=== PATIENT | male | born 1950 | race Caucasian/White ===

== ENCOUNTER 2020-09-24 04:18 | Observation (INO) | payer OTHER ==
--- OUTSIDE RECORDS SUMMARY | 2020-09-24 04:22 | XMS REPORT | Continuity of Care Document ---
:1950 Author Organization [facility] t Address [address] [place] [address] Care Team Providers Name Role Phone Unavailable Unavailable Unavailable Payers Payer Name Policy Type Policy Number Effective Date Expiration Date S ource Problems This patient has no known problems. Allergies, Adverse Reactions, Alerts Allergy Allergy Status Severity Reaction(s) Onset Inactive Treating Comm ents Source Name Type Date Date Clinician hydrocod DA Active [facility] one -12 Clear 00:00: Spann 00 [facility] hydrocod DA Active [facility] one 06-06 Clear 00:00: Spann 00 [facility] hydrocod DA Active [facility] 2011[facility] one 03-25 [place] 00:00: [facility] Medications This patient has no known medications. Procedures This patient has no known procedures. Results Test Description Test Time Test Comments Results Result [facility] e Comments - XR SHOULDER 2 + 2020-08-11 V LT 08:38:00 [facility] 1950 Sex: M Patient Name: ARI VOGT Unit No: [id number] EXAMS: CPT CODE: [id number] XR SHOULDER 2 + [place] [address]76 AP portable left shoulder COMMENT: The patient is status post reverse prosthesis placement which is articulating normally. at 0838 Reported and signed by: Ignacio Wren MD CC: Greg Hughes MD Technologist: RUBEN MOSQUERA (RT.R) Transcribed D/ (0838) FranciscoL [facility] NAME: ARI VOGT [address] [facility] PHYS: Greg Mace : 1950 AGE: 70 SEX: M [place] [address] LOC: Y.302 A PHONE #: [phone] EXAM DATE: 08/09/2020 STATUS: DIS IN FAX #: [phone] RAD #: D/C DT 08/10/2020 PAGE 1 Signed Report Patient Name: ARI VOGT Unit No: [id number] EXAMS: CPT CODE: [id number] XR SHOULDER 2 + [place] [address] <Continued> Orig Print D/T: S: 08/11/2020 (0841) [facility] NAME: ARI VOGT [address] [place] [address] PHYS: Greg Mace : 1950 AGE: 70 SEX: M [place] [address] LOC: Y.302 A PHONE #: [phone] EXAM DATE: 08/09/2020 STATUS: DIS IN FAX #: [phone] RAD #: D/C DT 08/10/2020 PAGE 2 Signed Report BASIC METABOLIC PANEL 2020-08-10 06:19:00 Test Item Value Reference Range Interpretation Comme nts SODIUM (test code = NA) 135 mmol/L 136-145 L POTASSIUM (test code = K) 4.7 mmol/L 3.5-5.1 N CHLORIDE (test code = CL) 99.0 mmol/L 98-107 N CARBON DIOXIDE (test code = CO2) 28.6 mmol/L 21-32 N GLUCOSE (test code = GLU) 114 mg/dL 70-110 H BLOOD UREA NITROGEN (test code = 18 mg/dL 7-18 N BUN) GLOMERULAR FILTRATION RATE (test 82.4 >60 Unit of measure: code = GFR) mL/min/1.73 m2R eference Range:Healthy A dults >90 mL/min/1.73 m2 For Chronic Kidney Disease: Stage II Mi ld Decrease in GFR 60-9 0 Stage III Moderate Decrease in GFR 30-59 Stage IV Severe Decrease in GFR 15-29 Stage V Kidney Failure <15 CREATININE (test code = CREAT) 0.91 mg/dL 0.55-1.30 N CALCIUM (test code = CA) 8.5 mg/dL 8.2-10.1 N CBC W/AUTO [id number] 05:46:00 Test Item Value Reference Range Interpretation Comments WHITE BLOOD CELL (test code = 12.6 K/mm3 5.7-10.5 H WBC) RED BLOOD CELL (test code = RBC) 4.36 M/mm3 4.2-5.4 N HEMOGLOBIN (test code = HGB) 13.3 g/dL 12-16 N HEMATOCRIT (test code = HCT) 39.7 % 37-47 N MEAN CELL VOLUME (test code = 91 fL 80-98 N MCV) MEAN CELL HGB (test code = MCH) 30.5 pg 27-34 N MEAN CELL HGB CONCENTRATION (test 33.5 g/dL 30.8-34.1 N code = MCHC) RED CELL DISTRIBUTION WIDTH (test 12.8 % 11-16 N code = RDW) PLT (test code = PLT) 165 K/mm3 130-400 N MEAN PLATELET VOLUME (test code = 11.0 fL 8.9-12.1 N MPV) NEUTROPHIL % (test code = NT%) 84.7 % 45-70 H LYMPHOCYTE % (test code = LY%) 6.2 % 20-40 L MONOCYTE % (test code = MO%) 8.3 % 3-10 N EOSINOPHIL % (test code = EO%) 0.0 % 1-5 L BASOPHIL % (test code = BA%) 0.2 % 0.0-1.1 N NEUTROPHIL # (test code = NT#) 10.68 K/mm3 2.00-7.50 H LYMPHOCYTE # (test code = LY#) 0.78 K/mm3 1.50-4.00 L MONOCYTE # (test code = MO#) 1.05 K/mm3 0.2-0.8 H EOSINOPHIL # (test code = EO#) 0.00 K/mm3 0.04-0.4 L BASOPHIL # (test code = BA#) 0.02 K/mm3 0.02-0.10 N MANUAL DIFF REQUIRED (test code = NO MANUAL DIFF MDIFF) NUCLEATED RED BLOOD CELL (test 0 % 0-0 N code = NRBC) SPECIMEN COMMENT: POD #1Novel Coronavirus 2018 [id number] 06:07:00 Test Item Value Reference Range Interpretation Comments Novel Coronavirus Negative Negative Positive r esults are 2019 Inhouse (test indicativ e of the presence code = COVNONPUI) ofSARS-CoV -2 RNA, clinical correlation wit h patient historyand othe r diagnostic info rmation is necessary to determinepatien t infection status. Positiv e results do not rule out bacterial infection or co -infection with other viru ses. Negative result s do not preclude SARS-C oV-2 infection andsh ould not be used as the roseanne e basis for patient managementdecis ions. Negative result s must be combined with otherclinical observations, p atient history, and epidemiological information . Detection of SARS-CoV-2 RNA may be affe cted bysample collec tion methods, storag e conditions, and /or stageof infection. Mariana l RNA mutations, vacc inations, antiviraltherap eutics, antibiotics, chemotherapeuti c orimmunosuppres josé drugs have not been e valuated for effectson d etection. Results are for the identification of SARS-CoV-2 RNA usingthe [employer] M2000 Sy stem under the FDA Emergen cy UseAuthorizatio n. The testing is perf ormed by personneltraoumar d in the procedures for the [place] M2000 molecular diagnostic SARS-CoV-2 assa y in vitro. Novel Coronavirus 2018 [id number] 06:07:00 Test Item Value Reference Range Interpretation Comments Novel Coronavirus Negative Negative Positive r esults are 2019 Inhouse (test indicativ e of the presence code = COVNONPUI) ofSARS-CoV -2 RNA, clinical correlation wit h patient historyand othe r diagnostic info rmation is necessary to determinepatien t infection status. Positiv e results do not rule out bacterial infection or co -infection with other viru ses. Negative result s do not preclude SARS-C oV-2 infection andsh ould not be used as the roseanne e basis for patient managementdecis ions. Negative result s must be combined with otherclinical observations, p atient history, and epidemiological information . Detection of SARS-CoV-2 RNA may be affe cted bysample collec tion methods, storag e conditions, and /or stageof infection. Mariana l RNA mutations, vacc inations, antiviraltherap eutics, antibiotics, chemotherapeuti c orimmunosuppres josé drugs have not been e valuated for effectson d etection. Results are for the identification of SARS-CoV-2 RNA usingthe [employer] M2000 Sy stem under the FDA Emergen cy UseAuthorizatio n. The testing is perf ormed by personneltraine d in the procedures for the [employer] M2000 molecular diagnostic SARS-CoV-2 assa y in vitro. COMPREHENSIVE METABOLIC [id number] 10:51:00 Test Item Value Reference Range Interpretation Comments SODIUM (test code = 139 mmol/L 136-145 N NA) POTASSIUM (test code = 4.3 mmol/L 3.5-5.1 N K) CHLORIDE (test code = 102.0 mmol/L 98-107 N CL) CARBON DIOXIDE (test 26.2 mmol/L 21-32 N code = CO2) GLUCOSE (test code = 108 mg/dL 70-110 N GLU) BLOOD UREA NITROGEN 20 mg/dL 7-18 H (test code = BUN) GLOMERULAR FILTRATION 58.7 >60 Unit o f measure: RATE (test code = GFR) mL/mi n/1.73 g1Ncyizmlts Range:Healthy Adults >90 mL/min/1.73 m2 For Chronic Kidney Disease: St age II Mild Decrease in GFR 60-90 St age III Moderate Decrease in GFR 30-59 Stage IV Severe Decre ase in GFR 15- 29 Stage V Kidney Failure <15 CREATININE (test code 1.22 mg/dL 0.55-1.30 N = CREAT) TOTAL PROTEIN (test 7.0 g/dL 6.4-8.2 N code = PROT) ALBUMIN (test code = 4.0 g/dL 3.4-5.0 N ALB) GLOBULIN (test code = 3.0 g/dL 2.2-4.2 N GLOB) ALBUMIN/GLOBULIN RATIO 1.3 0.7-2.0 N (test code = A/G) CALCIUM (test code = 8.7 mg/dL 8.2-10.1 N CA) BILIRUBIN TOTAL (test 0.50 mg/dL 0.2-1.00 N code = BILT) SGOT/AST (test code = 23.0 U/L 15-37 N AST) SGPT/ALT (test code = 54.0 U/L 12-78 N Please note new ALT) normal range. ALKALINE PHOSPHATASE 96 U/L 46-116 N TOTAL (test code = ALKP) PROTHROMBIN [id number] 10:37:00 Test Item Value Reference Range Interpretation Comments PROTHROMBIN TIME 13.1 secs 10.1-12.5 H PATIENT (test code = PTP) INTERNATIONAL NORMAL 1.15 <2.0 RECOMME NDED THERAPEUTIC RATIO (test code = RANGE FOR ORAL INR) ANTICOAGULANTTR EATMENT: CONDI TION INRProphylaxis of venous thrombos is in 2.0 - 3.0 high-risk medic al or surgical patientsTreatme nt of venous thrombos is 2.0 - 3.0Prevention o f embolism 2.0 - 3.0Prevention o f recurrent embol ism, or 3.0 - 4. 5 patients with mechanical pros thetic intravascular v [place] IS PATIENT ON ANTICOAGULANTS ? [facility] been notified if Patient is on Heparin Drip? NOTHROMBOPLASTIN TIME [id number] 10:37:00 Test Item Value Reference Range Interpretation Comments PTT ACTIVATED (test code = APTT) 31.6 secs 24.9-37.0 N IS PATIENT ON ANTICOAGULANTS ? [facility] been notified if Patient is on Heparin Drip? NOCBC W/AUTO [id number] 10:37:00 Test Item Value Reference Range Interpretation Comments WHITE BLOOD CELL (test code = WBC) 6.3 K/mm3 5.7-10.5 N RED BLOOD CELL (test code = RBC) 5.01 M/mm3 4.2-5.4 N HEMOGLOBIN (test code = HGB) 15.3 g/dL 12-16 N HEMATOCRIT (test code = HCT) 45.1 % 37-47 N MEAN CELL VOLUME (test code = MCV) 90 fL 80-98 N MEAN CELL HGB (test code = MCH) 30.5 pg 27-34 N MEAN CELL HGB CONCENTRATION (test 33.9 g/dL 30.8-34.1 N code = MCHC) RED CELL DISTRIBUTION WIDTH (test 12.8 % 11-16 N code = RDW) PLT (test code = PLT) 180 K/mm3 130-400 N MEAN PLATELET VOLUME (test code = 10.7 fL 8.9-12.1 N MPV) NEUTROPHIL % (test code = NT%) 67.0 % 45-70 N LYMPHOCYTE % (test code = LY%) 21.5 % 20-40 N MONOCYTE % (test code = MO%) 8.7 % 3-10 N EOSINOPHIL % (test code = EO%) 1.9 % 1-5 N BASOPHIL % (test code = BA%) 0.6 % 0.0-1.1 N NEUTROPHIL # (test code = NT#) 4.21 K/mm3 2.00-7.50 N LYMPHOCYTE # (test code = LY#) 1.35 K/mm3 1.50-4.00 L MONOCYTE # (test code = MO#) 0.55 K/mm3 0.2-0.8 N EOSINOPHIL # (test code = EO#) 0.12 K/mm3 0.04-0.4 N BASOPHIL # (test code = BA#) 0.04 K/mm3 0.02-0.10 N MANUAL DIFF REQUIRED (test code = NO MANUAL DIFF MDIFF) NUCLEATED RED BLOOD CELL (test 0 % 0-0 N code = NRBC) - XR ARTHROGRAM SHLDR [id number] 11:36:00 [facility] 1950 Sex: M Patient Name: ARI VOGT Unit No: [id number] EXAMS: CPT CODE: [id number] [place] [address] Fluoroscopically guided left shoulder aspiration followed by arthrogram COMMENT: After informed consent was obtained a 22-gauge needle is inserted into a prosthetic left shoulder joint under fluoroscopic control using sterile technique. 10 mL of blood- tinged fluid is aspirated from the joint. This is sent to the lab for an alysis. This is followed by intra-articular injection of 5 mL of Isovue- 300. Patient toleratedthe procedure well. Post arthrographic films show no evidence of extravasation of contrast outside the joint. at 1136 Reported and signed by: Ferdinand Fernández MD CC: Greg Hughes MD Technologist: RT Israel.(R) Transcribed D/ (1132) IvonneGVG [facility] NAME: ARI VOGT [address] [place] [address] PHYS: Greg Mace : 1950 AGE: 70 SEX:M [place] [address] LOC: Y.RAD PHONE #: [phone] EXAM DATE: 06/06/2020 STATUS: DEP CLI FAX #: [phone] RAD #: D/C DT PAGE 1 Signed Report Patient Name: ARI VOGT Unit No: [id number] EXAMS: CPT CODE: [id number] [place] [address] <Continued> Orig Print D/T: S: 06/19/2020 (1130) [facility] NAME: YAMILKA VOGT [address] [place] [address] PHYS: Greg Mace : 1950 AGE: 70 SEX: M [place] [address] LOC: Y.RAD PHONE #: [phone] EXAM DATE: 06/06/2020TATUS: DO CLI FAX #: [phone] RAD #: D/C DT PAGE2 Signed Report- CT UP EXTREM W/CONT [id number] 12:38:00 [facility] : 1950 Sex: M Patient Name: ARI VOGT Unit No: [id number] EXAMS: CPT CODE: [id number] CT UP EXTREM W/CONT LT CT OF THE LEFT SHOULDER POST ARTHROGRAPHY WITH SAGITTAL AND CORONAL RECONSTRUCTIONS DIAGNOSIS: The patient is status post arthroplasty. There is loosening of the glenoid component of the prosthesis with lucency between the prosthesis and the bony glenoid. Contrast is seen between the prosthesis and the bony glenoid. COMMENT: COMPARISON: January 06, 2010 Scans were performed with thin sections post arthrography and reconstructions were obtained. Postsurgical changes are present as described. The joint is distended with contrast. There is noevidence for rotator cuff tear. Mild fatty atrophy of the subscapularis muscle is noted. No loose bodies are seen. at 1238 Reported and signed by: Ignacio Wren MD CC: Greg Hughes MD Technologist: RT An(R) CTDI: DLP: Trnscrpt: 06/06/2020 (1238) [email or web address] [facility] NAME: ARI VOGT [address] [facility] [address] PHYS: EDKEVYN - Greg Hughes : 1950 AGE: 70 SEX: M [place], [place] [address] LOC: Y.RAD PHONE #: [phone] EXAM DATE: 06/06/2020 STATUS: REG CLI FAX #: [phone] RAD #: D/C DT PAGE 1 Signed Report Patient Name: ARI VOGT Unit No: [id number] EXAMS: CPT CODE: [id number] CT UP EXTREM W/[place] [id number] <Continued> Orig Print D/T:S: 06/06/2020 (1241) [facility] NAME: ARI VOGT [address] [facility] PHYS: Greg Mace : 1950 AGE: 70 SEX: M [place], [place] [address] LOC: YMichaelRAD PHONE #: [phone] EXAM DATE: 06/06/2020 STATUS: REG CLI FAX #: [phone] RAD #: D/C DT PAGE 2 Signed ReportCBC W/AUTO [id number] 11:00:00 Test Item Value Reference Range Interpretation Comments WHITE BLOOD CELL (test code = WBC) 7.1 K/mm3 5.7-10.5 N RED BLOOD CELL (test code = RBC) 5.04 M/mm3 4.2-5.4 N HEMOGLOBIN (test code = HGB) 15.4 g/dL 12-16 N HEMATOCRIT (test code = HCT) 46.6 % 37-47 N MEAN CELL VOLUME (test code = MCV) 93 fL 80-98 N MEAN CELL HGB (test code = MCH) 30.6 pg 27-34 N MEAN CELL HGB CONCENTRATION (test 33.0 g/dL 30.8-34.1 N code = MCHC) RED CELL DISTRIBUTION WIDTH (test 13.2 % 11-16 N code = RDW) PLT (test code = PLT) 176 K/mm3 130-400 N MEAN PLATELET VOLUME (test code = 10.8 fL 8.9-12.1 N MPV) NEUTROPHIL % (test code = NT%) 65.2 % 45-70 N LYMPHOCYTE % (test code = LY%) 19.4 % 20-40 L MONOCYTE % (test code = MO%) 11.3 % 3-10 H EOSINOPHIL % (test code = EO%) 2.5 % 1-5 N BASOPHIL % (test code = BA%) 1.0 % 0.0-1.1 N NEUTROPHIL # (test code = NT#) 4.62 K/mm3 2.00-7.50 N LYMPHOCYTE # (test code = LY#) 1.37 K/mm3 1.50-4.00 L MONOCYTE # (test code = MO#) 0.80 K/mm3 0.2-0.8 N EOSINOPHIL # (test code = EO#) 0.18 K/mm3 0.04-0.4 N BASOPHIL # (test code = BA#) 0.07 K/mm3 0.02-0.10 N MANUAL DIFF REQUIRED (test code = NO MANUAL DIFF MDIFF) NUCLEATED RED BLOOD CELL (test 0 % 0-0 N code = NRBC) SED [id number] 11:00:00 Test Item Value Reference Range Interpretation Comments SED RATE (test code = SEDW) 3 mm/hr 0-15 N C REACTIVE [id number] 10:19:00 Test Item Value Reference Range Interpretation Comments C REACTIVE PROTEIN (test code = < 0.2 mg/dL <0.9 CRP) CBC W/AUTO [id number] 09:59:00 Test Item Value Reference Range Interpretation Comments WHITE BLOOD CELL (test code = WBC) 7.1 K/mm3 5.7-10.5 N RED BLOOD CELL (test code = RBC) 5.04 M/mm3 4.2-5.4 N HEMOGLOBIN (test code = HGB) 15.4 g/dL 12-16 N HEMATOCRIT (test code = HCT) 46.6 % 37-47 N MEAN CELL VOLUME (test code = MCV) 93 fL 80-98 N MEAN CELL HGB (test code = MCH) 30.6 pg 27-34 N MEAN CELL HGB CONCENTRATION (test 33.0 g/dL 30.8-34.1 N code = MCHC) RED CELL DISTRIBUTION WIDTH (test 13.2 % 11-16 N code = RDW) PLT (test code = PLT) 176 K/mm3 130-400 N MEAN PLATELET VOLUME (test code = 10.8 fL 8.9-12.1 N MPV) NEUTROPHIL % (test code = NT%) 65.2 % 45-70 N LYMPHOCYTE % (test code = LY%) 19.4 % 20-40 L MONOCYTE % (test code = MO%) 11.3 % 3-10 H EOSINOPHIL % (test code = EO%) 2.5 % 1-5 N BASOPHIL % (test code = BA%) 1.0 % 0.0-1.1 N NEUTROPHIL # (test code = NT#) 4.62 K/mm3 2.00-7.50 N LYMPHOCYTE # (test code = LY#) 1.37 K/mm3 1.50-4.00 L MONOCYTE # (test code = MO#) 0.80 K/mm3 0.2-0.8 N EOSINOPHIL # (test code = EO#) 0.18 K/mm3 0.04-0.4 N BASOPHIL # (test code = BA#) 0.07 K/mm3 0.02-0.10 N MANUAL DIFF REQUIRED (test code = NO MANUAL DIFF MDIFF) NUCLEATED RED BLOOD CELL (test 0 % 0-0 N code = NRBC) SED [id number] 09:59:00 Test Item Value Reference Range Interpretation Comments SED RATE (test code = SEDW) mm/hr 0-15
[2020-09-24 04:59] LABS: Absolute Lymphocytes (CBC) 1.7 K/uL (0.7-4.9); Hematocrit 43.5 % (39.6-49.0); MPV 8.9 fL (7.6-11.3); RBC Red Blood Cell Count 4.77 M/uL (4.33-5.43)
[2020-09-24 05:01] LABS: Protime INR 1.14
[2020-09-24 05:12] LABS: ALT/SGPT 44 U/L (12-78); AST/SGOT 25 U/L (15-37); Albumin 3.7 g/dL (3.4-5.0); Alkaline Phosphatase 117 U/L (45-117); BUN Blood Urea Nitrogen 20 mg/dL (7-18); Bicarbonate 27 mmol/L (21-32); Bilirubin Direct 0.1 mg/dL (0-0.2); Bilirubin Total 0.5 mg/dL (0.2-1.0); Glucose Level 108 mg/dL (74-106); Magnesium 2.4 mg/dL (1.8-2.4); NT PRO-BNP 49 pg/mL (<125); Protein, Total 6.9 g/dL (6.4-8.2); Sodium Level 141 mmol/L (136-145); Troponin (Emerg Dept Use Only) < 0.02 ng/mL (0.0-0.045)
--- NOTE | 2020-09-24 06:39 | ER ---
Nurse's Notes [facility] Name: Allan Kelley Age: 70 yrs Sex: Male : 1950 Arrival Date: 09/24/2020 Time: 04:27 Bed 8 Private MD: Diagnosis: Chest pain, unspecified Presentation: 09/24 04:28 Chief complaint: EMS states: Called for patient with sudden onset of chest pain that lp1 woke him from sleep, non-radiating chest pain; Denies N/V, shortness of breath, dizziness. Coronavirus screen: Client denies travel out of the [place] in the last 14 days. At this time, the client does not indicate any symptoms associated with coronavirus-19. Ebola Screen: No symptoms or risks identified at this time. Initial Sepsis Screen: Does the patient meet any 2 criteria? No. Patient's initial sepsis screen is negative. Does the patient have a suspected source of infection? No. Patient's initial sepsis screen is negative. Risk Assessment: Do you want to hurt yourself or someone else? Patient reports no desire to harm self or others. Onset of symptoms was September 24, 2020 at 03:30. Care prior to arrival: Medication(s) given: ASA 324 PO, 0.4mg Nitro SL x2, Nitro paste applied to chest, Metoprolol 5mg IV, Fentanyl 50mcg IV IV initiated. 18 GA, in the right antecubital area, Glucose check: 118 Oxygen administered. via nasal cannula. 04:28 Method Of Arrival: EMS: [facility] lp1 04:28 Acuity: BENITEZ 3 lp1 Historical: - Allergies: 04:41 No Known Allergies; lp1 - Home Meds: 04:41 Metoprolol Tartrate Oral [Active]; lp1 - PMHx: 04:41 Hypertensive disorder; hyperlipidemia; lp1 - PSHx: 04:41 Left shoulder repair; lp1 - Immunization history:: Adult Immunizations up to date. - Social history:: Smoking status: Patient/guardian denies using tobacco, the patient reports quitting approximately 16 years ago. Screenin:42 Abuse screen: Denies threats or abuse. Denies injuries from another. Nutritional lp1 screening: No deficits noted. Tuberculosis screening: No symptoms or risk factors identified. Fall Risk None identified. Assessment: 04:44 General: Appears in no apparent distress. Behavior is calm, cooperative, appropriate lp1 for age. Pain: Complains of pain in chest Pain does not radiate. Pain currently is 0 out of 10 on a pain scale. Quality of pain is described as sharp, Pain began suddenly. Neuro: Level of Consciousness is awake, alert, obeys commands, Oriented to person, place, time, situation. Cardiovascular: Patient's skin is warm and dry. Respiratory: Respiratory effort is even, unlabored, Breath sounds are clear bilaterally. GI: No signs and/or symptoms were reported involving the gastrointestinal system. : No signs and/or symptoms were reported regarding the genitourinary system. EENT: No signs and/or symptoms were reported regarding the EENT system. Derm: Skin is intact, Skin is dry, Skin is normal. Musculoskeletal: No deficits noted. 06:00 Reassessment: Patient appears in no apparent distress at this time. Patient and/or lp1 family updated on plan of care and expected duration. Pain level reassessed. Patient is alert, oriented x 3, equal unlabored respirations, skin warm/dry/pink. Vital Signs: 04:28 BP 170 / 93; Pulse 57; Resp 16; Temp 98.2(O); Pulse Ox 96% on R/A; Weight 83.91 kg (R); lp1 Height 5 ft. 9 in. (175.26 cm); Pain 0/10; 05:00 BP 138 / 81; Pulse 56; Resp 14; Pulse Ox 95% on R/A; lp1 05:30 BP 119 / 71; Pulse 50; Resp 15; Pulse Ox 95% on R/A; lp1 06:06 BP 126 / 74; Pulse 51; Resp 13; Pulse Ox 97% on R/A; lp1 07:15 BP 121 / 75; Pulse 51; Resp 15; Pulse Ox 97% ; jl7 04:28 Body Mass Index 27.32 (83.91 kg, 175.26 cm) lp1 ED Course: 04:27 Patient arrived in ED. lp1 04:40 Triage completed. lp1 04:40 Arm band placed on right wrist. lp1 04:43 Maintain EMS IV. Dressing intact. Good blood return noted. Site clean \T\ dry. Gauge \T\ lp 1 site: 18g R AC. Patient maintains SpO2 saturation greater than 95% on room air. 04:44 Carly Bucio, RN is Primary Nurse. lp1 04:44 Patient has correct armband on for positive identification. Placed in gown. Bed in low lp1 position. Call light in reach. fire technology instructor on. Pulse ox on. NIBP on. 04:48 Cardiac pain workup initiated per nursing protocol. lp1 05:00 XRAY Chest (1 view) In Process Unspecified. EDMS 05:10 Edmund Sargent MD is Attending Physician. [facility] 06:21 Bhavani Phillips FNP-C is PHCP. kb 06:38 Jamal Hayes MD is Hospitalizing Provider. kb 06:41 No provider procedures requiring assistance completed. Patient admitted, IV remains in lp1 place. Administered Medications: No medications were administered Outcome: 06:39 Decision to Hospitalize by Provider. kb 06:41 Condition: stable lp1 06:41 Instructed on the need for admit. 08:32 Admitted to Tele accompanied by tech, via wheelchair, room 230, with chart, Report jl7 called to SUZAN Childress 08:34 Patient left the ED. jl7 Signatures: Dispatcher [employer] EDPR Bhavani Phillips FNP-C MASONRY CONTRACTOR-Ckb Carly Bucio, RN RN lp1 Jamari Zhong Jahala, RN RN jl7 Edmund Sargent MD MD 7 Corrections: (The following items were deleted from the chart) 04:34 04:34 EKG done, oe oe 04:42 04:41 PMHx: Hyperthyroidism; lp1 lp1
--- NOTE | 2020-09-24 06:39 | EDPHYS ---
Physician Documentation [facility] Name: Allan Kelley Age: 70 yrs Sex: Male : 1950 Arrival Date: 09/24/2020 Time: 04:27 Bed 8 Private MD: ED Physician Edmund Sargent HPI: 09/24 06:28 This 70 yrs old Male presents to ER via EMS with complaints of Chest Pain. kb 06:28 The patient or guardian reports chest pain that is located primarily in the anterior kb chest wall, left. Onset: at 03:30. The pain does not radiate. Associated signs and symptoms: Pertinent positives: shortness of breath, Pertinent negatives: abdominal pain, cough, diaphoresis, dizziness, headache, lower extremity pain, lower extremity swelling, lightheadedness, nausea, near syncope, palpitations, recent travel, syncope, vomiting. The chest pain is described as sharp. Duration: The patient or guardian reports a single episode, that is now resolved. Modifying factors: The symptoms are alleviated by nothing. the symptoms are aggravated by nothing. Severity of pain: At its worst the pain was moderate in the emergency department the pain has resolved. EMS care prior to arrival includes: aspirin, nitroglycerin, with resolution of the chest pain, saline lock, fentanyl. The patient has not experienced similar symptoms in the past. The patient has not recently seen a physician. Pt reports left chest pain with shortness of breath that woke him from sleep at 0330. States the pain lasted until he was given medications by EMS. Reports pain has not returned since then. History of high cholesterol and hypertension. Denies any symptoms prior to this episode. Has not had a cardiology workup in the past, has never had pain like this. . Historical: - Allergies: 04:41 No Known Allergies; lp1 - Home Meds: 04:41 Metoprolol Tartrate Oral [Active]; lp1 - PMHx: 04:41 Hypertensive disorder; hyperlipidemia; lp1 - PSHx: 04:41 Left shoulder repair; lp1 - Immunization history:: Adult Immunizations up to date. - Social history:: Smoking status: Patient/guardian denies using tobacco, the patient reports quitting approximately 16 years ago. ROS: 06:32 Constitutional: Negative for fever, chills, and weight loss. kb 06:32 Cardiovascular: Positive for chest pain, Negative for edema, orthopnea, palpitations, paroxysmal nocturnal dyspnea. 06:32 Respiratory: Positive for shortness of breath, Negative for cough, dyspnea on exertion, hemoptysis, orthopnea, pleurisy, sputum production, wheezing. 06:32 All other systems are negative. Exam: 06:33 Constitutional: This is a well developed, well nourished patient who is awake, alert, kb and in no acute distress. Head/Face: Normocephalic, atraumatic. ENT: Moist Mucous membranes Cardiovascular: Regular rate and rhythm with a normal S1 and S2. No gallops, murmurs, or rubs. No pulse deficits. Respiratory: Respirations even and unlabored. No increased work of breathing, no retractions or nasal flaring. Abdomen/GI: Soft, non-tender. No distention Skin: Warm, dry with normal turgor. Normal color. MS/ Extremity: Pulses equal, no cyanosis. Neurovascular intact. Full, normal range of motion. Neuro: Awake and alert, GCS 15, oriented to person, place, time, and situation. Moves all extremities. Normal gait. Psych: Awake, alert, with orientation to person, place and time. Behavior, mood, and affect are within normal limits. Vital Signs: 04:28 BP 170 / 93; Pulse 57; Resp 16; Temp 98.2(O); Pulse Ox 96% on R/A; Weight 83.91 kg (R); lp1 Height 5 ft. 9 in. (175.26 cm); Pain 0/10; 05:00 BP 138 / 81; Pulse 56; Resp 14; Pulse Ox 95% on R/A; lp1 05:30 BP 119 / 71; Pulse 50; Resp 15; Pulse Ox 95% on R/A; lp1 06:06 BP 126 / 74; Pulse 51; Resp 13; Pulse Ox 97% on R/A; lp1 07:15 BP 121 / 75; Pulse 51; Resp 15; Pulse Ox 97% ; jl7 04:28 Body Mass Index 27.32 (83.91 kg, 175.26 cm) lp1 MDM: 06:21 Patient medically screened. kb 06:28 Data reviewed: vital signs, nurses notes. Data interpreted: Pulse oximetry: on room air kb is 97 %. Interpretation: normal. 06:30 The patient was not given aspirin in the Emergency Department. Administered by EMS. kb 06:34 Counseling: I had a detailed discussion with the patient and/or guardian regarding: the kb historical points, exam findings, and any diagnostic results supporting the discharge/admit diagnosis, lab results, radiology results, the need for further work-up and treatment in the hospital. Physician consultation: Jamal Hayes MD was contacted at 06:34, regarding admission, patient's condition. 09/24 04:49 Order name: Basic Metabolic Panel lp1 09/24 04:49 Order name: CBC with Diff lp1 09/24 04:49 Order name: LFT's lp1 09/24 04:49 Order name: Magnesium lp1 09/24 04:49 Order name: NT PRO-BNP; Complete Time: 06:14 lp1 09/24 04:49 Order name: PT-INR; Complete Time: 06:14 lp1 09/24 04:49 Order name: Troponin (emerg Dept Use Only); Complete Time: 06:14 lp1 09/24 04:49 Order name: XRAY Chest (1 view) lp1 09/24 04:49 Order name: Basic Metabolic Panel; Complete Time: 06:14 EDMS 09/24 04:49 Order name: CBC with Automated Diff; Complete Time: 06:14 EDMS 09/24 04:49 Order name: Liver (Hepatic) Function; Complete Time: 06:14 EDMS 09/24 04:50 Order name: Magnesium; Complete Time: 06:14 EDMS 09/24 06:43 Order name: COVID-19 : Document "Date of Symptom Onset" if Symptomatic. tt3 09/24 08:28 Order name: Lipase; Complete Time: 08:32 EDMS 09/24 04:49 Order name: EKG; Complete Time: 04:50 lp1 09/24 04:49 Order name: Cardiac monitoring; Complete Time: 04:49 lp1 09/24 04:49 Order name: EKG - Nurse/Tech; Complete Time: 04:49 lp1 09/24 04:49 Order name: IV Saline Lock; Complete Time: 04:49 lp1 09/24 04:49 Order name: Labs collected and sent; Complete Time: 04:49 lp1 09/24 04:49 Order name: O2 Per Protocol; Complete Time: 04:49 lp1 09/24 04:49 Order name: O2 Sat Monitoring; Complete Time: 04:49 lp1 09/24 07:13 Order name: CONS Physician Consult EDMS Administered Medications: No medications were administered Disposition: 09/25 06:07 Co-signature as Attending Physician, Edmund Sargent MD. [email or web address] Disposition Summary: 09/24/20 06:39 Hospitalization Ordered Hospitalization Status: Observation kb Provider: Jamal Hayes Location: Telemetry/MedSurg (observation) kb Condition: Stable kb Problem: new kb Symptoms: have improved kb Bed/Room Type: Standard Room Assignment: 230(09/24/20 08:14) em1 Diagnosis - Chest pain, unspecified kb Forms: - Medication Reconciliation Form kb - SBAR form kb Signatures: Dispatcher [employer] EDBhavani Vaca FNP-C FNP-[place] em1 Carly Bucio RN RN lp1 Edmund Sargent MD MD [email or web address] Corrections: (The following items were deleted from the chart) 09/24 04:42 04:41 PMHx: Hyperthyroidism; lp1 lp1 08:14 06:39 kb em1
--- NOTE | 2020-09-24 07:05 | P.HP ---
Certification for Inpatient Patient admitted to: Observation With expected LOS: <2 Midnights Practitioner: I am a practitioner with admitting privileges, knowledge of patient current condition, hospital course, and medical plan of care. Services: Services provided to patient in accordance with Admission requirements found in Title 42 Section 412.3 of the Code of Federal Regulations Patient History Date of Service: 09/24/20 History of Present Illness: 70yo M, PMH: HTN. HLD. Presents to ED due to sudden onset of chest pain that woke him from sleep at 330am this morning. Left sided, described as sharp/stabbing in nature. Worse with deep breathing. No radiation. EMS gave fentanyl and nitro, with some relief. No pain currently. No recent illness. No sob, abd pain, n/v/d, no urinary symptoms, no rashes, lesions. no swelling. Quit smoking ~many years ago, no family history of cardiac disease. Denies any prior chest pain, no GERD. States he had a normal echocardiogram "a few years ago", and thinks he had a normal stress test several years ago. August 09 had L shoulder replacement, no complications. Has been going to outpatient rehab. In the ED, EKG without ischemic changes, trop negative, bloodwork rather unremarkable, vitals stable / WNL. - Past Medical/Surgical History Diabetic: No -: HTN -: HLD -: L shoulder replacement x2 -: appendectomy (58yrs ago) -: L inguinal hernia repair (~50yrs ago) - Family History Mother -: Cancer (breast) - Social History Smoking Status: Former smoker (quit 16yrs ago, ~30pk/yr) Alcohol use: Yes Caffeine use: Yes Place of Residence: Home Review of Systems 10-point ROS is otherwise unremarkable Physical Examination - Physical Exam General: Alert, In no apparent distress, Oriented x3 HEENT: PERRLA, EOMI, Sclerae nonicteric Neck: Supple, No Thyromegaly, No LAD Respiratory: Clear to auscultation bilaterally, Normal air movement Cardiovascular: No edema, Regular rate/rhythm, Normal S1 S2, No murmurs Capillary refill: <2 Seconds Gastrointestinal: Soft and benign, Non-distended, No tenderness Musculoskeletal: No erythema, No tenderness Integumentary: No rashes, No significant lesion Neurological: Normal speech, Normal strength at 5/5 x4 extr, Normal affect - Studies Laboratory Data (last 24 hrs) 09/24/20 04:24: PT 13.1 H, INR 1.14 09/24/20 04:24: WBC 5.50, Hgb 14.5, Hct 43.5, Plt Count 183 09/24/20 04:24: Sodium 141, Potassium 4.0, BUN 20 H, Creatinine 0.83, Glucose 108 H, Magnesium 2.4, Total Bilirubin 0.5, AST 25, ALT 44, Alkaline Phosphatase 117 Assessment and Plan - Advance Directives Does patient have a Living Will: No Does patient have a Durable POA for Healthcare: No Physician Review Additional Text: Problem List Chest pain, r/o ACS Hypertension Hyperlipidemia -EKG without ischemic changes, initial trop negative -chest pain resolved after asa, metoprolol, fentanyl, and nitro paste were administered -former smoker, quite many years ago, drinks daily glass of wine -no family history of heart disease, father lived to [facility] -recent shoulder surgery ~6 weeks ago, has been active, going to outpatient rehab, HR on low end of normal -low suspicion for PE at this point, check d-dimer -no fever/cough/SOB, CXR clear, do not suspect pneumonia / infectious etiology at this time -trend troponin, cardiology consulted -aspirin, metoprolol, statin Code: full Diet: heart healthy VTE: lovenox Dispo: obs for ACS r/o, anticipate dc home in next 24hrs Time Spent Managing Pts Care (In Minutes): 60
[2020-09-24 08:45] VITALS: O2SAT 97
[2020-09-24] MEDS ORDERED: ONDANSETRON 4 MG/2 ML VIAL IV PRN (09:02)
--- NOTE | 2020-09-24 09:03 | RAD REPORT ---
EXAM DESCRIPTION: Be Single View09/24/2020 5:01 am CLINICAL HISTORY: Chest pain COMPARISON: 2016 FINDINGS: The lungs appear clear of acute infiltrate. The heart is normal size IMPRESSION: No acute abnormalities displayed
[2020-09-24 09:14] VITALS: BMI 27.1
--- NOTE | 2020-09-24 09:43 | RAD REPORT ---
EXAM DESCRIPTION: CT - Chest For Pe Angio - 09/24/2020 9:33 am CLINICAL HISTORY: Chest pain COMPARISON: None. TECHNIQUE: Dynamically enhanced axial 3 mm thick images of the chest were obtained during administra tion of <100> mL Isovue 370 IV contrast. Coronal and oblique reconstruction images were generated and reviewed. Exam utilizes a protocol for optimal evaluation of pulmonary arterial tree. Maximum intensity projections 3D imaging was utilized All CT scans are performed using dose optimization technique as appropriate and may include automated exposure control or mA/KV adjustment according to patient size. FINDINGS: A pulmonary embolus is not seen. A thoracic aortic aneurysm is not noted. A pleural effusion is not seen. A pericardial effusion is not seen. A lung consolidation is not present. IMPRESSION: Negative for a pulmonary embolism.
[2020-09-24 09:56] LABS: Thyroid Stimulating Hormone 1.63 uIU/mL (0.360-3.740)
[2020-09-24] MEDS ORDERED: ENOXAPARIN 40 MG/0.4 ML SQ SCH (10:00)
[2020-09-24 11:07] LABS: Urine Appearance CLEAR (Clear); Urine Bilirubin NEGATIVE (Negative); Urine Blood NEGATIVE (Negative); Urine Color YELLOW (Yellow); Urine Glucose NEGATIVE (Negative); Urine Protein NEGATIVE (Negative); Urine Specific Gravity >=1.030 (1.005-1.030); Urine Urobilinogen 0.2 mg/dL (0.2-1.0)
[2020-09-24 11:08] LABS: Urine Microscopic Reflex NO UMIC
[2020-09-24 12:47] VITALS: BP 122/67; TEMP 96.9
--- NOTE | 2020-09-24 14:11 | CON ---
Date of Consultation: 09/24/2020 Reason For Consultation: Chest pain. History Of Present Illness: Mr. Kelley is a 70-year-old patient who is a patient of Dr. Doyle. He has a history of tobacco use, hypertension, dyslipidemia, recent shoulder surgery, came in with sharp at ypical chest pain, stabbing over the left anterior chest and shoulder area without any nausea, vomiti ng, diaphoresis, PND, orthopnea, pedal edema, palpitations, or syncope. He had an elevated D-dimer w ith a negative CTA. Troponin was negative. He wants to go home. He is very physically active. Allergies: NONE. Review of Systems: Negative. Social History: Positive for tobacco. Family History: Negative. Medications: At home include nicotinamide, metoprolol, Lipitor, and Norvasc. Physical Examination: Vital Signs: Stable. He was afebrile. HEENT: Negative. Neck: Supple without any bruit, lymphadenopathy, JVD, or thyromegaly. Chest: Clear to auscultation and percussion. Cardiac: Revealed a regular rhythm and rate. No murmurs, gallops, or rubs. Abdomen: Benign. Extremities: Revealed no clubbing, cyanosis, or edema. Diagnostic Data: As stated above. EKG normal. Impression And Plan: Atypical chest pain. The patient has a history of hypertension, dyslipidemia, tobacco use. I am comfortable with him going home whenever it is okay with Dr. Hayes. I will set [facility] up for an outpatient MPI and echocardiogram and see me in the near future. I think his pain is mos t likely musculoskeletal in nature, but he has multiple cardiac risk factors. He has had a cardiac w orkup in the last 3-4 years and I think it would be reasonable to repeated it. I will discuss the ca se with Dr. Doyle when he comes back. KATHERIN/THADDEUSL Voice ID: [id number] Report ID: [id number]
[2020-09-24] MEDS ORDERED: ATORVASTATIN 20 MG TAB PO SCH (21:00)
[2020-09-25] MEDS ORDERED: ASPIRIN EC 81 MG TAB PO SCH (09:00)
--- NOTE | 2020-09-25 16:09 | EKG ---
Test Date: 2020-09-24 Test Time: 04:31:41 Mechanical Estimator: SHERIE MEASUREMENT RESULTS: Intervals: Rate: 56 AL: 196 QRSD: 106 QT: 432 QTc: 416 [place]: P: 59 AL: 196 QRS: 72 T: 68 INTERPRETIVE STATEMENTS: Sinus bradycardia Otherwise normal ECG No previous ECG available for comparison Electronically Signed On 09-25-20 16:04:33 CDT by Juan Palma
== END 2020-09-24 13:15 | disposition home or self-care (01) ==
LOC: ER 04:18 → ERHOLD 07:22 → 2ND 08:29
PROVIDERS: ADMIT Hospitalist; ATTEND Hospitalist
DX: R07.89 Other chest pain (principal); I10 Essential (primary) hypertension; E78.5 Hyperlipidemia, unspecified; R79.89 Other specified abnormal findings of blood chemistry; Z96.612 Presence of left artificial shoulder joint; Z87.891 Personal history of nicotine dependence
CPT/HCPCS: 93005; 85025; 80048; 36415; 83735; 85610; 85379; 80076; 84443; 81003; 84484; 84439; 83690; 83880; 71275; 71045; 99285; Q9967; J1650; G0378 ×2

== ENCOUNTER 2023-09-07 07:59 | Emergency (ER) | payer OTHER ==
--- OUTSIDE RECORDS SUMMARY | 2023-09-07 08:03 | XMS REPORT | Continuity of Care Document ---
Author Name Unknown Address [address] [facility] [address] [place] [address] [facility] thconnect Address [address] [facility] [address] [place] [address] Care Team Providers Care Acquisition Lead Name Role Phone Marcus Doyle Attending Clinician Unavailable Greg Hughes Attending Clinician Unav ailable Jessica Attending Clinician Unavail able Greg Hughes Attending Clinician Greg Hughes Admitting Clinician Unav ailable Jessica Admitting Clinician Unavail able Physician, No Primary or Family Admitting Clinic elizabeth Unavailable Payers Payer Name Policy Type Policy Number Effective Date Expirati on Date Source [employer] (MEDICARE REPLACEMENT PPO) [id number] 2017 00:00:00 Problems Condition Name Condition Details Condition Category Status Onset Date Resolution Date Last Treatment Date Treating Clinician Comments Source 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 Problem Active 608 00:00: 00 [facility] History of operative procedure on shoulder History of Operative Procedure on Shoulder Problem Active 2020-03 2- 00:00: 00 [facility] Disorder of rotator cuff Disorder of Rotator Cuff Problem Active 5- 00:00: 00 [facility] Idiopathic osteoarthr itis Idiopathic Osteoarthr itis Problem Active 07-26 00:00: 00 [facility] Pain of left shoulder joint Pain of Left Shoulder Joint Problem Active 2019-03 00:00: 00 [facility] Allergies, Adverse Reactions, Alerts Allergy Name Allergy Type Status Severity Reaction(s) Onset Date Inactive Date Treating Clinician Comments Source hydrocod one DA Active [place] RASH 07-26 00:00: 00 [facility] hydrocod one DA Active [place] 07-26 00:00: 00 [facility] hydrocod one DA Active [place] RASH 06-06 00:00: 00 [facility] hydrocod one DA Active [place] 06-06 00:00: 00 [facility] hydrocod one DA Active [place] RASH 2011-03 00:00: 00 [facility] hydrocod one DA Active [place] 2011-03 00:00: 00 [facility] Medications Ordered Medication Name Filled Medication Name Start Date Stop Date Current Medication? Ordering Clinician Indication Dosage Frequency Signature (SIG) Comments Components Source hydrocodone 5 mg-acetamin ophen 325 mg tablet Take 1 tablet by mouth every four to six hours as needed for pain hydrocodone 5 mg-acetamin ophen 325 mg tablet Take 1 tablet by mouth every four to six hours as needed for pain 08-09 00:00: 00 No hydrocodon e 5 mg-acetami nophen 325 mg tablet Take 1 tablet by mouth every four to six hours as needed for pain [facility] Ultracet 37.5 mg-325 mg tablet 1 tablet po q6 prn pain Ultracet 37.5 mg-325 mg tablet 1 tablet po q6 prn pain 07-06 00:00: 00 No Ultracet 37.5 mg-325 mg tablet 1 tablet po q6 prn pain [facility] acetaminoph en 300 mg-codeine 30 mg tablet 1 q6 po acetaminoph en 300 mg-codeine 30 mg tablet 1 q6 po 06-06 00:00: 00 No acetaminop hen 300 mg-codeine 30 mg tablet 1 q6 po [facility] Procedures Procedure Date / Time Performed Performing Clinicia n Source XR, shoulder, 2 or more view 2021-08-23 00:00:00 [facility] Encounters Start Date/Time End Date/Time Encounter Type Admission Type Attending [facility] Care Department Encounter ID Source 2023-06-26 13:25:01 Outpatient Marcus Doyle [facility] [id number] [facility] 2020-07-26 08:39:51 [id number] 2022-08-06 00:00:00 2022-08-06 00:00:00 Outpatient Tangela Layton [facility] A[facility] [id number] [facility] 2022-08-02 00:00:00 2022-08-02 00:00:00 Outpatient Tangela Layton AOS[facility] AOSM [id number] [facility] 2022-04-16 00:00:00 2022-04-16 00:00:00 Outpatient Tangela Layton AOS[facility] AOSM [id number] [facility] 2022-04-16 00:00:00 2022-04-16 00:00:00 Outpatient Tangela Layton AOSM AOSM [id number] [facility] 2021-08-23 09:14:00 2021-08-23 09:14:00 Outpatient Tangela Layton AOSM AOSM [id number] [facility] 2021-08-23 00:00:00 2021-08-23 00:00:00 Outpatient Greg Hughes [id number] 2021-08-23 00:00:00 2021-08-23 00:00:00 Greg Hughes MD: [address] [place] [address] , Ph. [phone] [place] [facility] [address] [place] [id number] [facility] 2021-07-27 04:34:00 2021-07-27 04:34:00 Outpatient JAMES_Saul _Lucien_ [facility] [id number] [facility] 2020-08-03 13:30:19 2020-08-03 13:30:19 Outpatient Greg Hughes [facility] [id number] [facility] 2020-07-26 08:40:08 2020-07-26 08:40:08 Outpatient Greg Hughes [facility] [id number] [facility] 2020-06-06 09:29:41 2020-06-06 09:29:41 Outpatient Greg Alfaro [facility] [id number] [facility] Results Test Description Test Time Test Comments Results Resul t Comments Source - XR SHOULDER 2 + V LT 2020-08-11 08:38:[address] [facility] 1950 Sex: M Patient Name: ARI KELLEY Unit No: [id number] EXAMS: CPT CODE: [id number] XR SHOULDER 2 + [place] [address] AP portable left shoulder COMMENT: The patient is status post reverse prosthesis placement which is articulating normally. at 0838 Reported and signed by: Ignacio Wren MD CC: Greg Hughes MD Technologist: RUBEN MOSQUERA (RT.R) Transcribed D/ (0838) FranciscoL [facility] NAME: ARI KELLEY [address] [facility] PHYS: Greg Mace Chauncey : 1950 AGE: 70 SEX: M [place], [place] [address] LOC: Y.302 A PHONE #: [phone] EXAM DATE: 08/09/2020 STATUS: DIS IN FAX #: [phone] RAD #: D/C DT 08/10/2020 PAGE 1 Signed Report Patient Name: ARI KELLEY Unit No: [id number] EXAMS: CPT CODE: [id number] XR SHOULDER 2 + [place] [address] (Continued) Orig Print D/T: S: 08/11/2020 (0841) [facility] NAME: ARI KELLEY [address] [facility] PHYS: Greg Mace Chauncey : 1950 AGE: 70 SEX: M [place] [address] LOC: Y.302 A PHONE #: [phone] EXAM DATE: 08/09/2020 STATUS: DIS IN FAX #: [phone] RAD #: D/C DT 08/10/2020 PAGE 2 Signed Report CBC W/AUTO [id number] 05:46:00* Test Item Value Reference Range Interpretation Comme nts WHITE BLOOD CELL (test code = WBC) 12.6 K/mm3 5.7-10.5 H RED BLOOD CELL (test code = RBC) 4.36 M/mm3 4.2-5.4 N HEMOGLOBIN (test code = HGB) 13.3 g/dL 12-16 N HEMATOCRIT (test code = HCT) 39.7 % 37-47 N MEAN CELL VOLUME (test code = MCV) 91 fL 80-98 N MEAN CELL HGB (test code = MCH) 30.5 pg 27-34 N MEAN CELL HGB CONCENTRATION (test code = MCHC) 33.5 g/dL 30.8-34.1 N RED CELL DISTRIBUTION WIDTH (test code = RDW) 12.8 % 11-16 N PLT (test code = PLT) 165 K/mm3 130-400 N MEAN PLATELET VOLUME (test c ode = MPV) 11.0 fL 8.9-12.1 N NEUTROPHIL % (test code = NT%) 84.7 [...] K/mm3 0.02-0.10 N MANUAL DIFF REQUIRED (test c ode = MDIFF) NO MANUAL DIFF NUCLEATED RED BLOOD CELL (te st code = NRBC) 0 % 0-0 N SPECIMEN COMMENT: POD #1Novel Coronavirus 2019 [id number] 06:07:00* Test Item Value Reference Range Interpretation Comme nts Novel Coronavirus 2019 Inhouse (test code = COVNONPUI) Negative Negative Positive resul ts are indicative of the presence skTJXS-DrR-1 RNA, clinical correlation with patient historyand other diagnostic information is necessary to determinepatient infection status. Positive results do not rule outbacterial infection or co-infection with other viruses. Negative results do not preclude SARS-CoV-2 infection andshould not be used as the sole basis for patient managementdecisions. Negative results must be combined with otherclinical observations, patient history, and epidemiologicalinformation . Detection of SARS-CoV-2 RNA may be affected bysample collection methods, storage conditions, and/or stageof infection. Viral RNA mutations, vaccinations, antiviraltherapeutics, antibiotics, chemotherapeutic orimmunosuppressant drugs have not been evaluated for effectson detection. Results are for the identification of SARS-CoV-2 RNA usingthe [employer] M2000 System under the FDA Emergency UseAuthorization. The testing is performed by personneltrained in the procedures for the [employer] M2000 moleculardiagnostic SARS-CoV-2 assay in vitro. Novel Coronavirus 2019 [id number] 06:07:00* Test Item Value Reference Range Interpretation Comme nts Novel Coronavirus 2019 Inhouse (test code = COVNONPUI) Negative Negative Positive resul ts are indicative of the presence msUJWJ-CgD-5 RNA, clinical correlation with patient historyand other diagnostic information is necessary to determinepatient infection status. Positive results do not rule outbacterial infection or co-infection with other viruses. Negative results do not preclude SARS-CoV-2 infection andshould not be used as the sole basis for patient managementdecisions. Negative results must be combined with otherclinical observations, patient history, and epidemiologicalinformation . Detection of SARS-CoV-2 RNA may be affected bysample collection methods, storage conditions, and/or stageof infection. Viral RNA mutations, vaccinations, antiviraltherapeutics, antibiotics, chemotherapeutic orimmunosuppressant drugs have not been evaluated for effectson detection. Results are for the identification of SARS-CoV-2 RNA usingthe [employer] M2000 System under the FDA Emergency UseAuthorization. The testing is performed by personneltrained in the procedures for the [employer] M2000 moleculardiagnostic SARS-CoV-2 assay in vitro. COMPREHENSIVE METABOLIC [id number] 10:51:00* Test Item Value Reference Range Interpretation Comme nts SODIUM (test code = NA) 139 mmol/L 136-145 N POTASSIUM (test code = K) 4.3 mmol/L 3.5-5.1 N CHLORIDE (test code = CL) 102.0 mmol/L 98-107 N CARBON DIOXIDE (test code = CO2) 26.2 mmol/L 21-32 N GLUCOSE (test code = GLU) 108 mg/dL 70-110 N BLOOD UREA NITROGEN (test code = BUN) 20 mg/dL 7-18 H GLOMERULAR FILTRATION RATE (test code = GFR) 58.7 >60 Unit of m easure: mL/min/1.73 g2Prfibsuft Range:Healthy Adults >90 mL/min/1.73 m2 For Chronic Kidney Disease: Stage II Mild Decrease in GFR 60-90 Stage III Moderate Decrease in GFR 30-59 Stage IV Severe Decrease in GFR 15-29 Stage V Kidney Failure <15 CREATININE (test code = CREAT) 1.22 mg/dL 0.55-1.30 N TOTAL PROTEIN (test code = PROT) 7.0 g/dL 6.4-8.2 N ALBUMIN (test code = ALB) 4.0 g/dL 3.4-5.0 N GLOBULIN (test code = GLOB) 3.0 g/dL 2.2-4.2 N ALBUMIN/GLOBULIN RATIO (test code = A/G) 1.3 0.7-2.0 N CALCIUM (test code = CA) 8.7 mg/dL 8.2-10.1 N BILIRUBIN TOTAL (test code = BILT) 0.50 mg/dL 0.2-1.00 N SGOT/AST (test code = AST) 23.0 U/L 15-37 N SGPT/ALT (test code = ALT) 54.0 U/L 12-78 N Please note new normal range. ALKALINE PHOSPHATASE TOTAL (test code = ALKP) 96 U/L 46-116 N PROTHROMBIN [id number] 10:37:00* Test Item Value Reference Range Interpretation Comme nts PROTHROMBIN TIME PATIENT (test code = PTP) 13.1 secs 10.1-12.5 H INTERNATIONAL NORMAL RATIO (test code = INR) 1.15 <2.0 RECOMMENDED THER APEUTIC RANGE FOR ORAL ANTICOAGULANTTREATMENT: CONDITION INRProphylaxis of venous thrombosis in 2.0 - 3.0 high-risk medical or surgical patientsTreatment of venous thrombosis 2.0 - 3.0Prevention of embolism 2.0 - 3.0Prevention of recurrent embolism, or 3.0 - 4.5 patients with mechanical prosthetic intravascular valves IS PATIENT ON ANTICOAGULANTS ? [facility] been notified if Patient is on Heparin Drip? NOTHROMBOPLASTIN TIME [id number] 10:37:00* Test Item Value Reference Range Interpretation Comme nts PTT ACTIVATED (test code = APTT) 31.6 secs 24.9-37.0 N IS PATIENT ON ANTICOAGULANTS ? [facility] been notified if Patient is on Heparin Drip? NOCBC W/AUTO [id number] 10:37:00* Test Item Value Reference Range Interpretation Comme nts WHITE BLOOD CELL (test code = WBC) [...] 27-34 N MEAN CELL HGB CONCENTRATION (test code = MCHC) 33.9 g/dL 30.8-34.1 N RED CELL DISTRIBUTION WIDTH (test code = RDW) 12.8 % 11-16 N PLT (test code = PLT) 180 K/mm3 130-400 N MEAN PLATELET VOLUME (test c ode = MPV) 10.7 fL 8.9-12.1 N NEUTROPHIL % (test code = NT%) 67.0 [...] K/mm3 0.02-0.10 N MANUAL DIFF REQUIRED (test c ode = MDIFF) NO MANUAL DIFF NUCLEATED RED BLOOD CELL (te st code = NRBC) 0 % 0-0 N - XR ARTHROGRAM SHLDR [id number] 11:36:[address] [facility] 1950 Sex: M Patient Name: ARI KELLEY Unit No: [id number] EXAMS: CPT CODE: [id number] XR ARTHROGRAM SHLDRLT 86682 Fluoroscopically guided left shoulder aspiration followed by arthrogram COMMENT: After informed consent was obtained a 22-gauge needle is inserted into a prosthetic left shoulder joint under fluoroscopic control using sterile technique. 10 mL of blood-tinged fluid is aspirated from the joint. This is sent to the lab for analysis. This is followed by intra-articular injection of 5 mL of Isovue-300. Patient tolerated the procedure well. Post arthrographic films show no evidence of extravasation of contrast outside the joint. at 1136 Reported and signed by: Ferdinand Fernández MD CC: Greg Hughes MD Technologist: RT Israel.(R) Transcribed D/ (1598) IvonneGVG [facility] NAME: ARI KELLEY [address] [facility] PHYS: Greg Mace : 1950 AGE: 70 SEX: M [place], [place] [address] LOC: Y.RAD PHONE #: [phone] EXAM DATE: 06/06/2020 STATUS: DEP CLI FAX #: [phone] RAD #: D/C DT PAGE 1 Signed Report Patient Name: ARI KELLEYUnit No: [id number] EXAMS: CPT CODE: [id number] [place] [address] (Continued) Orig PrintD/T: S: 06/19/2020 (1139) [facility] NAME: ARI KELLEY [address] [facility] PHYS: Greg Mace : 1950 AGE: 70 SEX: M [place], [place] [address] LOC: Y.RAD PHONE #: [phone] EXAM DATE: 06/06/2020 STATUS: DEP CLI FAX #: [phone] RAD #: D/C DT PAGE 2 Signed Report- CT UP EXTREM W/CONT LT 2020-06-06 12:38:[address] [facility] : 1950 Sex: M Patient Name: ARI KELLEY Unit No: [id number] EXAMS: CPT CODE: [id number] CT UP EXTREM W/CONTLT 48981 CT OF THE LEFT SHOULDER POST ARTHROGRAPHY WITH SAGITTAL AND CORONAL RECONSTRUCTIONS DIAGNOSIS: The patient is status post arthroplasty. There is loosening of the glenoid component of the prosthesis with lucency between the prosthesis and the bony glenoid. Contrast is seen between the prost hesis and the bony glenoid. COMMENT: COMPARISON: January 06, 2010 Scans were performed with thin sections post arthrography and reconstructions were obtained. Postsurgical changes are present as described. The joint is distended with contrast. There is no evidence for rotator cuff tear. Mild fattyatrophy of the subscapularis muscle is noted. No loose bodies are seen. at 1238 Reported and signed by: Ignacio Wren MD CC: Greg Hughes MD Technologist: RT An(R) CTDI: DLP: Trnscrpt: 06/06/2020 (9286) t.ESAUR.L [facility] NAME: ARI KELLEY [address] PHYS: Greg Mace : 1950 AGE: 70 SEX: M [place], [place] [address] LOC: StephanyRAD PHONE #: [phone] EXAM DATE: 06/06/2020 STATUS: REG CLI FAX #: [phone] RAD #: D/C DT PAGE 1 Signed Report Patient Name: ARI KELLEY Unit No: [id number] EXAMS: CPT CODE: [id number] CT UP EXTREM W/[place] [address] (Continued) Orig Print D/T: S: 06/06/2020 (1241) [facility] NAME: ARI KELLEY [address] [facility] PHYS: Greg Mace : 1950 AGE: 70 SEX: M [place] [address] LOC: StephanyRAD PHONE #: [phone] EXAM DATE: 06/06/2020 STATUS: REG CLI FAX #: [phone] RAD #: D/C DT PAGE 2 Signed ReportCBC W/AUTO DIFF 2020-06-06 11:00:00* Test Item Value Reference Range Interpretation Comme nts WHITE BLOOD CELL (test code = WBC) [...] 27-34 N MEAN CELL HGB CONCENTRATION (test code = MCHC) 33.0 g/dL 30.8-34.1 N RED CELL DISTRIBUTION WIDTH (test code = RDW) 13.2 % 11-16 N PLT (test code = PLT) 176 K/mm3 130-400 N MEAN PLATELET VOLUME (test c ode = MPV) 10.8 fL 8.9-12.1 N NEUTROPHIL % (test code = NT%) 65.2 [...] K/mm3 0.02-0.10 N MANUAL DIFF REQUIRED (test c ode = MDIFF) NO MANUAL DIFF NUCLEATED RED BLOOD CELL (te st code = NRBC) 0 % 0-0 N SED [id number] 11:00:00* Test Item Value Reference Range Interpretation Comme nts SED RATE (test code = SEDW) 3 mm/hr 0-15 N C REACTIVE [id number] 10:19:00* Test Item Value Reference Range Interpretation Comme nts C REACTIVE PROTEIN (test cod e = CRP) < 0.2 mg/dL <0.9 CBC W/AUTO [id number] 09:59:00* Test Item Value Reference Range Interpretation Comme nts WHITE BLOOD CELL (test code = WBC) [...] 27-34 N MEAN CELL HGB CONCENTRATION (test code = MCHC) 33.0 g/dL 30.8-34.1 N RED CELL DISTRIBUTION WIDTH (test code = RDW) 13.2 % 11-16 N PLT (test code = PLT) 176 K/mm3 130-400 N MEAN PLATELET VOLUME (test c ode = MPV) 10.8 fL 8.9-12.1 N NEUTROPHIL % (test code = NT%) 65.2 [...] K/mm3 0.02-0.10 N MANUAL DIFF REQUIRED (test c ode = MDIFF) NO MANUAL DIFF NUCLEATED RED BLOOD CELL (te st code = NRBC) 0 % 0-0 N SED [id number] 09:59:00* Test Item Value Reference Range Interpretation Comme nts SED RATE (test code = SEDW) mm/hr 0-15 Notes Date/Time Note Provider Source 2020-08-10 09:07:00 [id number] [id number]+bBGV9l4KqgDQ Quk4Bm6PmGOvw3sTSsMUGublRyUBrKIOaa7719-15-93S22:0 7:00 [facility]Clinical NoteREPORT#:[id number] REPORT STATUS: SignedDATE:08/10/20 TIME: 906 PATIENT: ARI KELLEY UNIT #: [id number]#: [id number] ROOM/BED: Y302-ADOB: [birth year] AGE: 70 SEX: M ATTEND: Greg Hughes [facility] AUTHOR: Reyes Gill MD * ALL edits or amendments must be made on the electronic/computer document * Clinical NoteNote:[facility] Reyes Patel M.D. 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 Anticoagulation as per Dr. Hughes.3.) Hypertension- .follow BP and hold Rxs if SBP<120.4.) OsteoArthritis Hyperlipidemia- .continue on Rx.* OK for DISCHARGE per Internal Medicine. Prior Events/Overnight: Uneventful.Chief Complaint: No significant complaints. ObjectiveVital SignsDate Temp Pulse Resp B/P B/P Mean Pulse Ox GxP930/-08/10 96.8-99.1 55-87 14-19 130-153/65-9 91.1-110.3 94-100 32-100 1 Gen: Alert, oriented, in mild discomfort Neck: No Masses, No Thyromegaly-CV: Regular Rate Rhythm / Edema- no significant Resp: Clear To Ascultation / Normal Respiratory EffortABD: NonTender / NonDistended MS/Skin: No sign of compartment syndrome / +wriggles LUE digits, wrist / nl capillary refill of LUE digitsOther: dressing dry Labs/X-ray: Laboratory Tests: 08/10 313 Chemistry Sodium (136 - 145 mmol/L) 135 L Potassium (3.5 - 5.1 mmol/L) 4.7 Chloride (98 - 107 mmol/L) 99.0 Carbon Dioxide (21 - 32 mmol/L) 28.6 BUN (7 - 18 mg/dL) 18 Creatinine (0.55 - 1.30 mg/dL) 0.91 Glomerular Filtr Rate (>60) 82.4 Glucose (70 - 110 mg/dL) 114 H Calcium (8.2 - 10.1 mg/dL) 8.5 Hematology WBC (5.7 - 10.5 K/mm3) 12.6 H RBC (4.2 - 5.4 M/mm3) 4.36 Hgb (12 - 16 g/dL) 13.3 Hct (37 - 47 %) 39.7 MCV (80 - 98 fL) 91 MCH (27 - 34 pg) 30.5 MCHC (30.8 - 34.1 g/dL) 33.5 RDW (11 - 16 %) 12.8 Plt Count (130 - 400 K/mm3) 165 MPV (8.9 - 12.1 fL) 11.0 Neut % (Auto) (45 - 70 %) 84.7 H Lymph % (Auto) (20 - 40 %) 6.2 L [place] % (Auto) (3 - 10 %) 8.3 Eos % (Auto) (1 - 5 %) 0.0 L Baso % (Auto) (0.0 - 1.1 %) 0.2 Neut # (Auto) (2.00 - 7.50 K/mm3) 10.68 H Lymph # (Auto) (1.50 - 4.00 K/mm3) 0.78 L [place] # (Auto) (0.2 - 0.8 K/mm3) 1.05 H Eos # (Auto) (0.04 - 0.4 K/mm3) 0.00 L Baso # (Auto) (0.02 - 0.10 K/mm3) 0.02 Add Manual Diff (MANUAL DIFF) NO Nucleated RBC % (0 - 0 %) 0 Reyes Patel M.D. at 1614 RPT #:[id number] OF REPORT CLClinical qcxu5830-32-25O33:07:00Y.UHKH95616284-8251KZFolsc able for patient ophqHQTESYALTJRRDH2130-68-95W72:14:51 [facility] 2020-08-10 08:13:00 [id number] A7xXgqHW7ui7r6FZInnEmvir1InlW bY3zLZHzqaTRL9Ssi/U4gfwkRH6Vc8CUv/5618-55-47U71:1 3:00 [facility]Pain Management Progress NoteREPORT#:[id number] REPORT STATUS: SignedDATE:08/10/20 TIME: 812 PATIENT: ARI KELLEY UNIT #: [id number]#: [id number] [facility] AGE: 70 SEX: M ATTEND: Greg Hughes [facility] AUTHOR: Christina Briceno FOOT DOCTOR * ALL edits or amendments must be made on the electronic/computer document * SubjectiveChief Complaint:L SHOULDER PAIN S/P TSA REVISIONComments:Last Documented: Result Date Time FiO2 100 08/10 075 O2 Delivery Nasal cannula 08/10 752 O2 Flow Rate 3 08/10 075 Pulse Ox 94 08/10 717 B/P 153/89 08/10 717 B/P Mean 110.3 08/10 717 Temp 36.1 08/10 717 Pulse 80 08/10 717 Resp 18 08/10 717 History: PMH: HTN, SINUS [place]RA[place] POD: 1 APMS RN: Micheline ABDULLAHI RN MD who placed block: DR. GABRIEL Type of block: IS S/S Time block wore off: 0500 Medication: DILAUDID Pump settings: BASAL RATE: O DOSE: 0.2 MG DELAY: 8 MIN HEALTH INFORMATION SYSTEMS TECHNICIAN USE: FRQUENT Activity status: PT SITTING UP IN BED EATING BREAKFAST. Pain: STATES HAS LITTLE PAIN Physical Exam: VAS: 1-2 LOS: 1 Resp Quality: 1 Side Effects: NONE PT APPEARS COMFORTABLE AT THIS TIME. MOTOR MVMT AND STRENGTH INTACT TO LUE. Plan: BLOCK FOLLOW UP HEALTH INFORMATION SYSTEMS TECHNICIAN TO BE DC'D BY FLOOR NURSE THIS AM PT TO TRANSITION TO ORAL PAIN MEDS ANTICIPATE D/C HOME TODAY at 0816 RPT #:[id number] OF REPORT PRProgress Obsn6970-41-46J49:13:00Y.NLBA92819159-9929WOQqfjw able for patient gjptIXWQTOBQLBYZHJ9069-02-47F82:16:39 [facility] 2020-08-10 08:13:00 DTxbmozyrsu89931235Q XoGokNyRDSQ/RHLSPiUmG8VVDTW3H MWEwsjRRPJ8E53sXRND1U0eD+/6XJGRYJx9479-57-74F40:1 3:00 [facility]Pain Management Progress NoteREPORT#:[id number] REPORT STATUS: SignedDATE:08/10/20 TIME: 08 PATIENT: ARI KELLEY UNIT #: [id number]#: [id number] [address] AGE: 70 SEX: M ATTEND: Greg Hughes [facility] AUTHOR: Christina Briceno FOOT DOCTOR * ALL edits or amendments must be made on the electronic/computer document * SubjectiveChief Complaint:L SHOULDER PAIN S/P TSA REVISIONComments:Last Documented: Result Date Time FiO2 100 08/10 075 O2 Delivery Nasal cannula 08/10 752 O2 Flow Rate 3 08/10 752 Pulse Ox 94 08/10 717 B/P 153/89 08/10 717 B/P Mean 110.3 08/10 717 Temp 36.1 08/10 717 Pulse 80 08/10 717 Resp 18 08/10 717 History: PMH: HTN, SINUS [place]RA[place] POD: 1 APMS RN: Micheline ABDULLAHI RN MD who placed block: DR. GABRIEL Type of block: IS S/S Time block wore off: 0500 Medication: DILAUDID Pump settings: BASAL RATE: O DOSE: 0.2 MG DELAY: 8 MIN HEALTH INFORMATION SYSTEMS TECHNICIAN USE: FRQUENT Activity status: PT SITTING UP IN BED EATING BREAKFAST. Pain: STATES HAS LITTLE PAIN Physical Exam: VAS: 1-2 LOS: 1 Resp Quality: 1 Side Effects: NONE PT APPEARS COMFORTABLE AT THIS TIME. MOTOR MVMT AND STRENGTH INTACT TO LUE. Plan: BLOCK FOLLOW UP HEALTH INFORMATION SYSTEMS TECHNICIAN TO BE DC'D BY FLOOR NURSE THIS AM PT TO TRANSITION TO ORAL PAIN MEDS ANTICIPATE D/C HOME TODAY at 0816 at 0638 RPT #:[id number] OF REPORT PRProgress Gqbo7567-96-27N83:13:00Y.[id number] able for patient chzzHVMEZIAUMANONH1972-32-47A96:38:27 [facility] 2020-08-10 06:35:00 [id number] OvOuwOqoLImh3ESGu/JoBfQsV+7mi e97DOXf9aTduEMZM8Owjk2+eib0T1OEC+m0201-04-86E36:3 5:00 [facility])Discharge SummaryREPORT#:[id number] REPORT STATUS: SignedDATE:08/10/20 TIME: 06 PATIENT: ARI KELLEY UNIT #: [id number]#: [id number] ROOM[facility]BED: [facility]-ADOB: [birth year] AGE: 70 SEX: M ATTEND: [facility] AUTHOR: WALLACE ESPAÑA MD * ALL edits or amendments must be made on the electronic/computer document * General InformationDischarge date: 08/10/20Hospital course:Discharge Diagnosis: Left shoulder failed TSADischarge: Home Pt Condition: Stable Activity: Ambulate with Assistance Diet as tolerated Sig Findings: uneventful courseTreatment Rendered: Left shoulder HWR and RSA implantPrescriptions: On chartSpecial Instructions: provided to patientFollow- up appointment: 2 Week(s) Brief Hospital CourseThe patient underwent the above procedure on their admission date without complication. Postoperatively they were transferred to the orthopedic patient care unit. They received 24hrs postoperative antibiotics. They were transitionedfrom IV to oral pain medications with good control at discharge. They were placed in a sling and worked on elbow/wrist ROM and ADLs with PT. Once patient met all criteria they were deemed appropriate for discharge. They had no other complications during the visit. Med Rec Med RecDischarge meds:Continue taking these medications:Multivitamins W-Minerals (Multivitamins) 1 TAB TABLET 1 TABLET ORAL DAILY. ASCORBIC ACID (VITAMIN C) 1,000 MG TAB 2,000 MILLIGRAM ORAL DAILY. amLODIPine (NORVASC) 5 MG TAB 5 MILLIGRAM ORAL DAILY. METOPROLOL TARTRATE (LOPRESSOR) 25 MG TAB 25 MILLIGRAM ORAL TWICE DAILY. ATORVASTATIN (LIPITOR) 20 MG TAB 20 MILLIGRAM ORAL BEDTIME. CHOLECALCIFEROL (VITAMIN D3) (VITAMIN D3) 1,000 UNIT TAB 1,000 UNITS ORAL DAILY. ASCORBIC ACID (VITAMIN C) 1,000 MG TAB 1,000 MILLIGRAM ORAL DAILY. MAGNESIUM GLUCONATE (MAGNESIUM GLUCONATE) 30 MG (550 MG) TAB 1 TABLET ORAL TWICE DAILY. FLUTICASONE PROPIONATE (FLONASE 50 MCG/ACT NASAL) 50 MCG/ACTUATION SPRAY 1 SPRAY NASAL DAILY. IBUPROFEN (ADVIL) 200 MG TAB 400 MILLIGRAM ORAL EVERY 4 HOURS NEEDED. as needed for PAIN DICLOFENAC SODIUM ER (VOLTAREN) 50 MG TAB.DR 50 MILLIGRAM ORAL TWICE DAILY NEEDED. as needed for PAIN Discharge Instructions PCP)( Discharge to: Home/Self Care Discharge InstructionsAdditional Discharge Routines: None at 0636 RPT #:[id number] OF REPORT DSDischarge cqfdqxn4210-34-85A06:35:00Y.[id number] ailable for patient pifkJWAJXUAMEITTZF7373-98-47H42:36:37 [facility] 2020-08-10 06:32:00 [id number] bLLK2Oew4l3/XfbMEJr3QKlejgMXN 6Tpq2F84IyTwm26b2pBcrS8tGHunLdMEPy0007-41-47S73:3 2:00 [facility] ([facility])Orthopaedic Progress NoteREPORT#:[id number] REPORT STATUS: SignedDATE:08/10/20 TIME: 0632 PATIENT: ARI KELLEY UNIT #: [id number]#: [id number] [facility]GE: 70 SEX: M ATTEND: Greg Hughes [facility] AUTHOR: WALLACE ESPAÑA MD * ALL edits or amendments must be made on the electronic/computer document * Diagnosis, Assessment PlanFree text A P:Subjective: Patient is alert, oriented, and resting comfortably. Tolerating PO intake well. Pain is tolerable. Denies CP or SOB. Denies Numbness, tingling or weakness. Objective:L Shoulder- dressing is clean, dry, and intact. Arm in sling. Sensation intact to Axillary, radial, median, ulnar nerves Able to fire deltoid Intact motor function in radial, median, ulnar nerves Radial pulse palpable Laboratory Tests 08/10/20 0314:[Embedded Image Not Available]Vital Signs: Date Time Temp Pulse Resp B/P B/P Pulse O2 O2 Flow FiO2 Mean Ox Delivery Rate 08/10 0339 95 Nasal 3 32 cannula 08/10 0305 37.3 75 16 138/77 97.4 97 08/09 2303 37.0 80 16 130/72 91.1 94 08/09 2135 94 Nasal 3 32 cannula 08/09 2028 37.3 87 16 131/75 93.2 96 Room air 08/09 1525 36.0 74 14 146/91 109.6 98 Nasal 14 cannula 08/09 1345 100 Nasal 3 32 cannula 08/09 1342 36.0 65 14 141/78 98.9 97 Nasal 3 cannula 08/09 1315 57 19 146/75 100 Nasal 3 cannula 08/09 1300 Nasal 6 cannula 08/09 1300 55 17 139/67 100 Nasal 3 cannula 08/09 1255 Simple 6 mask 08/09 1245 36.6 57 14 144/65 98 Room air 3 08/09 1230 56 16 141/67 98 Nasal 3 cannula 08/09 1215 56 16 145/67 100 Nasal 3 cannula 08/09 1200 59 15 147/72 100 Simple 6 mask / 1153 36.5 71 16 149/72 97 Simple 6 mask / 0927 52 18 105/63 100 Simple 6 mask 05/ 0912 56 17 104/59 100 Simple 6 mask 05/ 0857 60 16 117/65 100 Simple 6 mask 05/ 0842 59 16 111/62 100 Simple 6 mask / 0743 36.1 61 18 147/78 96 Room air Assessment/ Plan: Left shoulder revision arthroplasty TSA to RSA - Post op day #1 May discharge home when ready from orthopedic standpoint -Follow up in office with physician in 2 week(s).Prescription for pain control called in to pharmacy at 0633 RPT #:[id number] OF REPORT PRProgress Iwfd2507-21-79J32:32:00Y.[id number] able for patient bczjWCTUDAGYYGROZM9025-56-98M59:33:56 [facility] 2020-08-09 21:44:00 [id number] lGiiWqT0VYBp0FuK4hzup+gFMTyE3 tfIp30Rj+fBs4OHehf3hc5eXrDQ/pMChTK1141-95-43O42:4 4:00 [facility] ([facility])Clinical NoteREPORT#:[id number] REPORT STATUS: SignedDATE:08/09/20 TIME: 2143 PATIENT: ARI KELLEY UNIT #: [id number]#: [id number] ROOM[facility]BED: [facility]-ADOB: [birth year] AGE: 70 SEX: M ATTEND: Greg Hughes [facility] AUTHOR: Reyes Gill MD * ALL edits or amendments must be made on the electronic/computer document * Clinical NoteNote:[facility] Reyes Patel MD(cell text [phone])Internal Medicine Consult at request of : Dr. Greg Hughes Chief Complaint: left shoulder pain HPI: 70 yo M is now s/p Revision of Left Total Shoulder Arthroplasty (TSA) to reverse by Dr. Hughes. Mr. Kelley is s/p TSA in 2009. He relates years of progressive left shoulder pain (recently severe), worse with activity, and popping crunchy with restricted motion at times in quality. He has failed conservative management. Comorbidities: see below. PmHx: . Hypertension, Hypercholesterolemia ALLERGY: Allergies:hydrocodone (Coded, Mild, RASH, 07/26/20) Home Medications: Home Medications:amLODIPine (NORVASC) 5 MG PO DAILY METOPROLOL TARTRATE (LOPRESSOR) 25 MG PO BID ATORVASTATIN (LIPITOR) 20 MG PO BEDTIME CHOLECALCIFEROL (VITAMIN D3) (VITAMIN D3) 1,000 UNITS PO DAILY ASCORBIC ACID (VITAMIN C) 1,000 MG PO DAILY MAGNESIUM GLUCONATE 1 TAB PO BID FLUTICASONE PROPIONATE (FLONASE 50 MCG/ACT NASAL) 1 SPRAY NASAL DAILY IBUPROFEN (ADVIL) 400 MG PO Q4H PRN PRN PAIN DICLOFENAC SODIUM ER (VOLTAREN) 50 MG PO BID PRN PRN PAIN ASCORBIC ACID (VITAMIN C) 2,000 MG PO DAILY Multivitamins W-Minerals (Multivitamins) 1 TAB PO DAILY SgHx: . Left TSA SHx: Tob: 1 ppd x 30 yrs. Quit 16 years FHx: .No significant hx of DVT/PE.Alcohol: 1 glass of wine daily Drugs: none Lives: with spouse Vitals:Vital Signs Date Temp Pulse Resp B/P B/P Mean Pulse Ox FiO2 08/09 96.8-99.1 52-87 14-19 104-149/59-91 93.2-109.6 94-100 32 Gen: Alert, in mild discomfort, nl nutrition.EYE: Nl lids conjunctiva.ENT: Nl ears Nose, nl lips,. Neck: Supple, nl thyroid, No masses.CV: Regular Rate Rhythm, no heave or significant murmur. Edema- none RESP: Clear to Auscultation, normal Respiratory effort.ABD: Soft, NonDistended,.LYM: No significant cervical Lymphadenopathy.MS: No sign of compartment syndrome, arm in sling, dressing dry and intactNEURO: Some numbness of LUE, +wriggles LUE digits, wrist . Preop Labs (07/26/2020): CBC:. Hgb 15.3, Plt 180, CHEM: Na 139, K 4.3, Cr 1.22 (eGFR 58.7%), EKG: Sinus bradycardia at 51 bpm (medium to high risk of complications or morbidity) (major surgery) (IV sedative, meds) Assessment Plan1.) Anemia of Acute Blood Loss- .will recheck tomorrow. 2.) S/p Revision to LEft RSA- .acute multi-modal pain control and followup. Anticoagulation as per Dr. Hughes.3.) Hypertension- .follow BP and hold Rxs if SBP<120.4.) OsteoArthritis Hyperlipidemia- .continue on Rx. Reyes Patel M.D. Thanks! G8427 - current medications obtained and reviewed.G8730 - pain assessment with tool and followup yvvc4728N - offered discussion on advanced care plan and patient declined to addressissue at this time. at 0650 RPT #:[id number] OF REPORT CLClinical bsjv7211-90-26R83:44:00Y.GJJZ96399894-5207GQScjwf able for patient bouvHJVEYDLKMJXQVD0163-40-72K70:50:37 [facility] 2020[facility] 12:05:00 IJjwhewwgev78031040D NLwkKrWh27QiAgFIjbFd9eGBk2z4R jsinnGjTURT6Yr7yWJhDglMQgngqEkUFNb5090-66-52A80:0 5:00 [facility] ([facility])Brief Op NoteREPORT#:[id number] REPORT STATUS: SignedDATE:08/09/20 TIME: 1205 PATIENT: ARI KELLEY UNIT #: [id number]#: [id number] ROOM/BED:: 50 AGE: 70 SEX: M ATTEND: Greg Hughes [facility] AUTHOR: WALLACE ESPAÑA MD * ALL edits or amendments must be made on the electronic/computer document * Op/Inv Proc Note - BriefPre-procedure diagnosis:left shoulder failed TSAPost-procedure diagnosis: same as pre procedure dxProcedures performed:Left shoulder revision to RSAPrimary Surgeon:SaulAssistant(s): Taco JohnsonFindings:See dictationComplications: noneEstimated blood loss in ml's: 200ccsSpecimens removed/altered: noneDrain(s): Medium Hemovac at 1206 RPT #:[id number] OF REPORT OPOperative ivmhmv3818-22-98Q79:05:00Y.[id number] ilable for patient xnylNCFAGOTQARRKTN0260-93-75E90:06:16 [facility] 2020-08-09 11:42:00 NBmiacrkdhf41069451r 7YGtauoXBzmF2WnI5Hu1OZc6gJzO2 OiNhzl5IqzqrMGJ0un2MKwriDsgQ5YLMLh3436-89-94E38:4 2:[id number] [facility] [address] [address] PATIENT NAME: ARI KELLEY ADMIT DATE: 08/09/20ACCOUNT NO: [id number] ROOM NO: Y.302 AGE: 70 REPORT TYPE: OPERATIVE REPORT SEX: M ADMITTING PHYSICIAN: ATTENDING PHYSICIAN:Greg Hughes MD OPERATION DATE: 08/09/2020 PREOPERATIVE DIAGNOSIS: Left shoulder failed total shoulder arthroplasty. POSTOPERATIVE DIAGNOSES: Left shoulder failed total shoulder arthroplasty withsubscapularis tendon disruption and left shoulder subdeltoid contracture. PROCEDURES PERFORMED:1. Left shoulder examination under anesthesia.2. Left shoulder complex revision total shoulder arthroplasty using reverseprosthesis.3. Left shoulder open subdeltoid contracture release. SURGEON: Greg Hughes MD ASSISTANTS: Greg Johnson MD and Wallace España MD ANESTHESIA: General. COMPLICATIONS: None. ESTIMATED BLOOD LOSS: 200 mL INDICATIONS FOR PROCEDURE: Mr. Kelley is a 70-year-old male, who 10 years priorunderwent a total shoulder arthroplasty done by me. The patient did well formany years, but unfortunately developed progressive glenoid loosening. Risksand benefits of revision total shoulder arthroplasty reverse prosthesis werediscussed with him and he desired to proceed with surgery. The reverse prosthesis is a much more complex device than conventional shoulderarthroplasty requiring more time for insertion as well as more diligent followupto observe for the higher complication rate that can occur in the postoperativeglobal period. For these reasons, I feel the use of a 22 modifier is indicatedwhen coding for this procedure. PROCEDURE IN DETAIL: The patient was taken to the operating room and placed onthe operating room table in supine position, where general anesthesia wasadministered. The patient was then positioned in modified beach chair position. Examination under anesthesia did not reveal any pathological laxity orstiffness of glenohumeral joint. Next, the left upper extremity and shoulder girdle region were prepped and PATIENT NAME: ARI KELLEY draped in usual sterile fashion. Prior deltopectoral approach was then reopenedusing #10 blade scalpel. Bovie was used in deep dissection obtaininghemostasis. Deltopectoral interval was identified. There was a subdeltoidcontracture present and this was released to permit mobilization of the humerus. Axillary nerve was identified and protected throughout the case. Subscapularistendon and biceps were absent. The supraspinatus, infraspinatus, and teresminor were intact. There was clear joint fluid present with no evidence ofinfection. Glenoid was grossly loose and removed. Proximal humerus was thendislocated. The humeral stem was disimpacted out of the proximal humerus. Proximal humerus was retracted posteriorly. Next, all the soft tissue wasremoved out of the glenoid, which demonstrated a contained defect. Next, theglenoid was prepared for the Tornier Perform Plus glenoid and a 29+6 lateralizedbaseplate with a 9.5 x 35 screw was selected and inserted. Allograft chips andbone putty were placed behind the glenoid component prior to inserting all theway. Next, the baseplate was further fixed with a 38 locking screw inferiorly,a 38 locking screw superiorly, 34 compression screw posteriorly, and 30compression screw anteriorly. This gave excellent fixation. A 36+3 lateralizedglenoid was then placed and the whole construct was stable. Proximal humeruswas then redislocated. Proximal humerus was then prepared using the DJOAltiVate reverse and a size 12 diameter standard length regular shell wasinserted in 30 degrees of humeral retroversion. Trials were made with varioussize spacers and polyethylene and ultimately a +8 mm spacer with a 36+4constrained polyethylene was inserted. This gave excellent soft tissue tensionand appropriate range of motion and stability. Wound was irrigated thoroughly. A medium Hemovac drain was placed. Deep tissue was reapproximated with 0 Vicrylin an interrupted fashion. Subcutaneous tissue was reapproximated with 2-0Vicryl in an interrupted fashion. Skin was reapproximated with skin chica. Sterile dressing and sling were applied. The patient tolerated the procedurewell, was transferred to the recovery room in satisfactory condition. The skilled assistance of Greg Johnson MD was necessary during thiscomplex surgical procedure. He assisted with every aspect of the operationincluding, but not limited to, proper and safe positioning of the patient,obtaining adequate surgical exposure, manipulation of surgical instruments,suture management, surgical knot tying, the continual process of hemostasisduring the procedure itself in addition to surgical wound closure and removal ofthe patient from the operating table and returning the patient back to [facility]. His assistance allowed me to perform the most sensitive andtechnical potions of this operation using 2 hands, thus enhancing efficiency andpatient safety. This would not be possible without the help of a skilledassistant familiar with the procedure and capable of safely performing theaforementioned tasks. Dictated By: Greg Hughes MD WT: OP:Y.HIM/EDWTH/NTSDD: 08/09/2020 11:42:43DT: 08/09/2020 14:00:15Conf#: [id number]/DID#: [id number] Authenticated by Greg Hughes MD On 08/10/2020 06:45:16 AM PATIENT NAME: ARI KELLEY at 0645 PATIENT NAME: ARI KELLEY omxxjd5678-06-30D53:00:00Y.[id number] lable for patient iqtqMVJOPBVHBHPPCK8310-66-22O12:45:57 [facility] 2020-07-26 10:04:00 IPkmoamafhc29418979i ddcvQLZINOypGuWGf4y2Uhj1a4mnh g/ydkN3TLAe2l+5POMab9xA3DMAi/1/EO34751-64-60D44:0 4:[id number] [facility] [place] [address] PATIENT NAME: ARI KELLEY ADMIT DATE: ACCOUNT NO: [id number] ROOM NO: AGE: 70 REPORT TYPE: ELECTROCARDIOGRAM SEX: M ADMITTING PHYSICIAN:Greg Hughes MD ATTENDING PHYSICIAN:Greg Hughes MD Order:[id number] Reason : PRE SURGERY CLEARANCE Test Date/Time Stamp:FriJul 26 2020 10:04:23Blood Pressure : / mmHGVent. Rate : 051 BPM Atrial Rate : 051 BPM P-R Int : 184 ms QRS Dur : 114 ms QT Int : 440 ms P-R-T Axes : 069 085 083 degrees QTc Int : 405 ms Sinus bradycardiaOtherwise normal ECGNo previous ECGs availableConfirmed by SUDHEER MUNIZ MD ([id number]) on 07/28/2020 8:17:09 PM Referred By: Greg uHghes Confirmed by:SUDHEER MUNIZ MD at 2017 PATIENT NAME: ARI KELLEY .[id number] AVAvailable for patient eupmCBWSNJDCACORXN5769-27-32C37:17:42 [facility]
--- NOTE | 2023-09-07 08:28 | RAD REPORT ---
EXAM DESCRIPTION: CT - Head Brain Wo Cont - 09/07/2023 8:22 am CLINICAL HISTORY: DIZZINESS COMPARISON: No comparisons TECHNIQUE: All CT scans are performed using dose optimization technique as appropriate and may inclu de automated exposure control or mA/KV adjustment according to patient size. FINDINGS: No intracranial hemorrhage, hydrocephalus or extra-axial fluid collection.No areas of brai n edema or evidence of midline shift. Mild chronic small vessel ischemic changes. The paranasal sinuses and mastoids are clear. The calvarium is intact. IMPRESSION: No acute intracranial abnormality.
[2023-09-07] MEDS ORDERED: NA CHLORIDE 0.9% 1,000 ML ONE (08:33)
[2023-09-07 08:47] LABS: Absolute Eosinophils 0.1 K/uL (0-0.5); Absolute Lymphocytes (CBC) 0.8 K/uL (0.7-4.9); Absolute Monocytes 0.5 K/uL (0.1-1.3); Absolute Neutrophil 5.4 K/uL (1.8-8.0); Basophils % 0.7 % (0-1.3); Hematocrit 45.9 % (39.6-49.0); Hemoglobin 15.5 g/dL (13.6-17.9); Lymphocytes % 12.3 % (15.3-44.8); MCH 31.3 pg (27.0-35.0); MCHC 33.9 g/dL (32.0-36.0); MCV 92.3 fL (80-100); MPV 8.3 fL (7.6-11.3); Monocytes % 7.5 % (3.3-12.3); Neutrophils % 78.5 % (41.7-73.7); Platelets 181 thou/uL (152-406); RBC Red Blood Cell Count 4.97 M/uL (4.33-5.43); Red Cell Distribution Width 13.6 % (12.1-15.2)
[2023-09-07 09:07] LABS: Albumin 3.8 g/dL (3.4-5.0); Albumin/Globulin Ratio 1.1 (1.1-1.8); Bilirubin Direct 0.2 mg/dL (0-0.2); Bilirubin Indirect, Calculated 0.3 mg/dL (0.2-0.8); Bilirubin Total 0.5 mg/dL (0.2-1.0); Globulin 3.4 g/dL (2.3-3.5); Magnesium 2.3 mg/dL (1.6-2.4); Protein, Total 7.2 g/dL (6.4-8.2); Troponin High Sensitivity 4.8 pg/mL (<58.9)
--- NOTE | 2023-09-07 09:09 | RAD REPORT ---
EXAM DESCRIPTION: RAD - Chest Single View - 09/07/2023 8:59 am CLINICAL HISTORY: dizziness COMPARISON: <Comparisons> FINDINGS: Lines: None. Lungs: No evidence of edema or pneumonia. Pleural: No significant pleural effusions or pneumothorax. Cardiac: The heart size is within normal limits. Mediastinum: Within normal limits. Bones: No acute fractures. Left shoulder arthroplasty . Other: None IMPRESSION: No acute cardiopulmonary disease.
--- NOTE | 2023-09-07 11:22 | ER ---
Nurse's Notes [facility] Name: Allan Kelley Age: 73 yrs Sex: Male : 1950 Arrival Date: 09/07/2023 Time: 07:59 Bed 4 Private MD: Diagnosis: Syncope Near Presentation: 09/06 08:52 Chief complaint: Patient states: he woke up at 0530 this AM with dizziness and some kc6 nausea. states he felt normal yesterday. Coronavirus screen: At this time, the client does not indicate any symptoms associated with coronavirus-19. Ebola Screen: No symptoms or risks identified at this time. 08:52 Method Of Arrival: Ambulatory kc6 08:53 Initial Sepsis Screen: Does the patient meet any 2 criteria? No. Patient's initial kc6 sepsis screen is negative. Does the patient have a suspected source of infection? No. Patient's initial sepsis screen is negative. Risk Assessment: Do you want to hurt yourself or someone else? Patient reports no desire to harm self or others. Onset of symptoms was September 07, 2023 at 05:30. 08:53 Acuity: BENITEZ 3 kc6 Historical: - Allergies: 08:53 No Known Allergies; kc6 - PMHx: 08:53 Hyperlipidemia; Hypertensive disorder; kc6 - PSHx: 08:53 Left shoulder repair; kc6 - Immunization history:: Adult Immunizations up to date. - Infectious Disease History:: Denies. - Social history:: Smoking status: Patient/guardian denies using tobacco, the patient reports quitting approximately 19 years ago. Screenin:48 [facility] ED Fall Risk Assessment (Adult) History of falling in the last 3 months, kc6 including since admission No falls in past 3 months (0 pts) Confusion or Disorientation No (0 pts) Intoxicated or Sedated No (0 pts) Impaired Gait No (0 pts) Mobility Assist Device Used No (0 pt) Altered Elimination No (0 pt) Score/Fall Risk Level 0 - 2 = Low Risk. Abuse screen: Denies threats or abuse. Denies injuries from another. Nutritional screening: No deficits noted. Tuberculosis screening: No symptoms or risk factors identified. Assessment: 08:09 VAN Scoring: Arm Drift: Patients demonstrates NO arm weakness. Patient is VAN Negative. ap3 Rosette Swallow Protocol Exclusion Criteria: Exclusion Criteria Result: Proceed Brief Cognitive Screen What is your name? Normal, Where are you right now? Normal, What year is it? Normal. Oral Mechanism Examination Facial Symmetry: Normal, Motion: Normal, Lip Closure: Normal, Oral Mechanism Result: Normal. 3 oz Water Swallow Challenge: Pt able to drink all water without stopping, coughing, choking or throat clearing: Yes Result: PASS MD Notified: Dipesh Palacios MD. General: Appears in no apparent distress. Behavior is calm, cooperative, appropriate for age. Pain: Denies pain. Neuro: Reports dizziness. Cardiovascular: Patient's skin is warm and dry. Respiratory: Airway is patent Respiratory effort is even, unlabored, Respiratory pattern is regular, symmetrical. 09:09 Reassessment: Patient appears in no apparent distress at this time. No changes from kc6 previously documented assessment. Patient and/or family updated on plan of care and expected duration. Pain level reassessed. Patient is alert, oriented x 3, equal unlabored respirations, skin warm/dry/pink. 10:18 Reassessment: Patient appears in no apparent distress at this time. No changes from kc6 previously documented assessment. Patient and/or family updated on plan of care and expected duration. Pain level reassessed. Patient is alert, oriented x 3, equal unlabored respirations, skin warm/dry/pink. 11:07 Reassessment: Patient appears in no apparent distress at this time. No changes from kc6 previously documented assessment. Patient and/or family updated on plan of care and expected duration. Pain level reassessed. Patient is alert, oriented x 3, equal unlabored respirations, skin warm/dry/pink. Vital Signs: 08:47 BP 143 / 81 LA Supine (auto/reg); Pulse 58; Resp 16 S; Pulse Ox 99% on R/A; kc6 08:47 BP 133 / 78 LA Sitting (auto/reg); Pulse 63; kc6 08:47 BP 149 / 78 LA Standing (auto/reg); Pulse 71; kc6 08:54 Weight 81.65 kg (R); Height 5 ft. 8 in. (R); kc6 10:51 BP 136 / 74; Pulse 59; Resp 19 S; Pulse Ox 100% on R/A; kc6 11:07 BP 146 / 74; Pulse 60; Resp 15 S; Pulse Ox 100% on R/A; kc6 08:54 Body Mass Index 27.37 (81.65 kg, 172.72 cm) kc6 NIH Stroke Scale Scores: 08:09 NIHSS Score: 0 ap3 ED Course: 08:01 Patient arrived in ED. im 08:01 Dipesh Palacios MD is Attending Physician. rt 08:02 Arm band placed on Patient placed in an exam room, on a stretcher. ll1 08:09 Jacqueline Blake, RN is Primary Nurse. ap3 08:14 EKG done, by ED staff, reviewed by Dipesh Palacios MD. em1 08:23 Head Brain Wo Cont In Process Unspecified. EDMS 08:48 Patient has correct armband on for positive identification. Bed in low position. Call kc6 light in reach. Side rails up X2. Adult w/ patient. night monitor on. Pulse ox on. NIBP on. Warm blanket given. Pillow given. 08:49 Inserted saline lock: 20 gauge in right antecubital area, using aseptic technique. kc6 Blood collected. 08:53 Triage completed. kc6 09:01 XRAY Chest (1 view) In Process Unspecified. EDMS 11:26 No provider procedures requiring assistance completed. IV discontinued, intact, ap3 bleeding controlled, No redness/swelling at site. Pressure dressing applied. 11:27 Provided Education on: call light education. ap3 Administered Medications: 08:54 Drug: NS 0.9% IV 1000 ml IV at 1 bolus Per protocol; 1000 mL bolus Route: IV; Rate: 1 kc6 bolus; Site: right antecubital; 10:17 Follow up: Response: No adverse reaction; IV Status: Completed infusion; IV Intake: kc6 1000ml Medication: 11:27 VIS not applicable for this client. ap3 Intake: 10:17 IV: 1000ml; Total: 1000ml. kc6 Outcome: 11:20 Discharge ordered by . rt 11:27 Discharged to home ambulatory, with family, ap3 11:27 Condition: good 11:27 Discharge instructions given to patient, Instructed on discharge instructions, follow up and referral plans. Demonstrated understanding of instructions, follow-up care, 11:27 Patient left the ED. ap3 NIH Stroke Scale - NIH Stroke Score Date: 09/07/2023 Time: 08:09 Total Score = 0 10. Dysarthria (speech clarity - read or repeat words) - 0(Normal) 11. Extinction and Inattention (visual/tactile/auditory/spatial/personal) - 0(No abnormality) 1a. Level of Consciousness (LOC) - 0(Alert) 1b. Level of Consciousness (LOC) (Month \T\ Age) - 0(Both) 1c. LOC Commands (Open \T\ Closes Eyes/Traffic Workforce Representative) - 0(Both) 2. Best Gaze (Lateral Gaze Paresis) - 0(Normal) 3. Visual Field Loss - 0(No visual loss) 4. Facial Palsy - 0(Normal) 5a. Left Arm: Motor (10-second hold) - 0(No drift) 5b. Right Arm: Motor (10-second hold) - 0(No drift) 6a. Left Leg: Motor (5-second hold - always test supine) - 0(No drift) 6b. Right Leg: Motor (5-second hold - always test supine) - 0(No drift) 7. Limb Ataxia (finger/nose \T\ heel/ruiz - test with eyes open) - 0(Absent) 8. Sensory Loss (pinprick arms/legs/face) - 0(Normal) 9. Best Language: Aphasia (description/naming/reading) - 0(No aphasia) Initials: ap3 Signatures: Dispatcher [employer] [place] em1 Jacqueline Blake RN RN ap3 Sharon Castillo RN RN ll1 Feli Arteaga RN RN kc6 Dipesh Palacios MD MD rt Alanis Leyva im
--- NOTE | 2023-09-07 11:22 | EDPHYS ---
Physician Documentation [facility] Name: Allan Kelley Age: 73 yrs Sex: Male : 1950 Arrival Date: 09/07/2023 Time: 07:59 Bed 4 Private MD: ED Physician Dipesh Palacios HPI: 09/06 08:27 This 73 yrs old Male presents to ER via Unassigned with complaints of S/S of Possible rt Stroke. 08:27 Patient presents to the ED with dizziness described as lightheadedness. Patient states rt that he feels like he is "drunk". Patient went to bed feeling well, woke up feeling this way. States he felt nauseated, but not currently. Denies other acute complaints at this time, symptoms are moderate in severity, no other aggravating or alleviating factors.. Historical: - Allergies: 08:53 No Known Allergies; kc6 - PMHx: 08:53 Hyperlipidemia; Hypertensive disorder; kc6 - PSHx: 08:53 Left shoulder repair; kc6 - Immunization history:: Adult Immunizations up to date. - Infectious Disease History:: Denies. - Social history:: Smoking status: Patient/guardian denies using tobacco, the patient reports quitting approximately 19 years ago. ROS: 08:27 Constitutional: Negative for fever, chills, and weight loss, Cardiovascular: Negative rt for chest pain, palpitations, and edema, Respiratory: Negative for shortness of breath, cough, wheezing, and pleuritic chest pain, MS/Extremity: Negative for injury and deformity, Skin: Negative for injury, rash, and discoloration, 08:27 Abdomen/GI: Positive for nausea, Negative for abdominal pain, 08:27 Neuro: Positive for dizziness, Negative for altered mental status, Exam: 08:27 Constitutional: This is a well developed, well nourished patient who is awake, alert, rt and in no acute distress. Head/Face: Normocephalic, atraumatic. Chest/axilla: Normal chest wall appearance and motion. Nontender with no deformity. No lesions are appreciated. Cardiovascular: Regular rate and rhythm with a normal S1 and S2. No gallops, murmurs, or rubs. Normal PMI, no JVD. No pulse deficits. Respiratory: Lungs have equal breath sounds bilaterally, clear to auscultation and percussion. No rales, rhonchi or wheezes noted. No increased work of breathing, no retractions or nasal flaring. Abdomen/GI: Soft, non-tender, with normal bowel sounds. No distension or tympany. No guarding or rebound. No evidence of tenderness throughout. MS/ Extremity: Pulses equal, no cyanosis. Neurovascular intact. Full, normal range of motion. 08:27 Eyes: Extraocular muscles intact, no visual field deficits. 08:27 ECG was reviewed by the Attending Physician. 08:27 Neuro: Speech normal, cranial nerves II through XII intact, strength and sensation intact upper lower extremities, no ataxia finger-nose, Vital Signs: 08:47 BP 143 / 81 LA Supine (auto/reg); Pulse 58; Resp 16 S; Pulse Ox 99% on R/A; kc6 08:47 BP 133 / 78 LA Sitting (auto/reg); Pulse 63; kc6 08:47 BP 149 / 78 LA Standing (auto/reg); Pulse 71; kc6 08:54 Weight 81.65 kg (R); Height 5 ft. 8 in. (R); kc6 10:51 BP 136 / 74; Pulse 59; Resp 19 S; Pulse Ox 100% on R/A; kc6 11:07 BP 146 / 74; Pulse 60; Resp 15 S; Pulse Ox 100% on R/A; kc6 08:54 Body Mass Index 27.37 (81.65 kg, 172.72 cm) kc6 NIH Stroke Scale Scores: 08:09 NIHSS Score: 0 ap3 MDM: 08:01 Patient medically screened. rt 18:00 Differential diagnosis: Near syncope, dysrhythmia, anemia. Data reviewed: vital signs, rt nurses notes, lab test result(s), EKG, radiologic studies. Consideration of Admission/Observation Escalation of care including admission/observation considered. Symptoms resolved, reassuring labs, EKG, very low suspicion for CVA given lack of focal neurodeficits, does not require mission for TIA workup. Patient to follow-up with PCP as an outpatient.. I considered the following discharge prescriptions or medication management in the emergency department Medications were administered in the Emergency Department. See MAR. Independent interpretation of the following test(s) in the Emergency Department CT Scan: My interpretation is No intracranial hemorrhage seen on interpretation of CT scan images. Care significantly affected by the following chronic conditions: Hypertension. Counseling: I had a detailed discussion with the patient and/or guardian regarding the historical points, exam findings, and any diagnostic results supporting the discharge/admit diagnosis, lab results, radiology results, the need for outpatient follow up, to return to the emergency department if symptoms worsen or persist or if there are any questions or concerns that arise at home. Response to treatment: the patient's symptoms have resolved after treatment. 09/06 08:09 Order name: Basic Metabolic Panel; Complete Time: 09:09 rt 09/06 08:09 Order name: CBC with Diff; Complete Time: 09:09 rt 09/06 08:09 Order name: LFT's; Complete Time: 09:09 rt 09/06 08:09 Order name: Magnesium; Complete Time: 09: rt 09/06 08:09 Order name: Troponin HS; Complete Time: 09:09 rt 09/06 08:09 Order name: XRAY Chest (1 view); Complete Time: 09:10 rt 09/06 08:15 Order name: Head Brain Wo Cont; Complete Time: 09:09 EDMS 09/06 08:09 Order name: EKG; Complete Time: 08:10 rt 09/06 08:09 Order name: Cardiac monitoring; Complete Time: 08:14 rt 09/06 08:09 Order name: EKG - Nurse/Tech; Complete Time: 08:14 rt 09/06 08:09 Order name: IV Saline Lock; Complete Time: 08:47 rt 09/06 08:09 Order name: Labs collected and sent; Complete Time: 08:47 rt 09/06 08:09 Order name: O2 Per Protocol; Complete Time: 08:28 rt 09/06 08:09 Order name: O2 Sat Monitoring; Complete Time: 08:28 rt 09/06 08:09 Order name: Orthostatics; Complete Time: 08:47 rt EC:27 Rate is 61 beats/min. Rhythm is regular, Normal Sinus Rhythm with No ectopy. QRS [place] rt is Normal. DE interval is normal. QRS interval is normal. QT interval is normal. No Q waves. T waves are Normal. No ST changes noted. Interpreted by me. Administered Medications: 08:54 Drug: NS 0.9% IV 1000 ml IV at 1 bolus Per protocol; 1000 mL bolus Route: IV; Rate: 1 kc6 bolus; Site: right antecubital; 10:17 Follow up: Response: No adverse reaction; IV Status: Completed infusion; IV Intake: kc6 1000ml Disposition Summary: 09/07/23 11:20 Discharge Ordered Notes: Location: Home rt Problem: new rt Symptoms: are resolved rt Condition: Stable rt Diagnosis - Syncope Near rt Followup: rt - With: Private Physician - When: 2 - 3 days - Reason: Discharge Instructions: - Discharge Summary Sheet rt - Near-Syncope rt Forms: - Medication Reconciliation Form rt - Antibiotic Education rt - Prescription Opioid Use rt - Patient Portal Instructions rt - Leadership Thank You Letter rt NIH Stroke Scale - NIH Stroke Score Date: 09/07/2023 Time: 08:09 Total Score = 0 10. Dysarthria (speech clarity - read or repeat words) - 0(Normal) 11. Extinction and Inattention (visual/tactile/auditory/spatial/personal) - 0(No abnormality) 1a. Level of Consciousness (LOC) - 0(Alert) 1b. Level of Consciousness (LOC) (Month \\T\\ Age) - 0(Both) 1c. LOC Commands (Open \\T\\ Closes Eyes/Accounts Administrator) - 0(Both) 2. Best Gaze (Lateral Gaze Paresis) - 0(Normal) 3. Visual Field Loss - 0(No visual loss) 4. Facial Palsy - 0(Normal) 5a. Left Arm: Motor (10-second hold) - 0(No drift) 5b. Right Arm: Motor (10-second hold) - 0(No drift) 6a. Left Leg: Motor (5-second hold - always test supine) - 0(No drift) 6b. Right Leg: Motor (5-second hold - always test supine) - 0(No drift) 7. Limb Ataxia (finger/nose \\T\\ heel/ruiz - test with eyes open) - 0(Absent) 8. Sensory Loss (pinprick arms/legs/face) - 0(Normal) 9. Best Language: Aphasia (description/naming/reading) - 0(No aphasia) Initials: ap3 Signatures: Dispatcher [employer] EDMS Feli Arteaga RN RN kc6 Dipesh Palacios MD MD rt Corrections: (The following items were deleted from the chart) 08:15 08:10 Head Brain W/ Wo [id number] ordered. EDMS EDMS
[2023-09-07 12:27] VITALS: BP 146/74; O2SAT 100
--- NOTE | 2023-09-08 13:06 | EKG ---
Test Date: 2023-09-07 Test Time: 08:09:30 Driller Brake Lining: ALONSO MEASUREMENT RESULTS: Intervals: Rate: 61 MD: 186 QRSD: 98 QT: 420 QTc: 422 Garrett: P: 78 MD: 186 QRS: 82 T: 69 INTERPRETIVE STATEMENTS: Normal sinus rhythm Normal ECG Compared to ECG 09/24/2020 04:31:41 Sinus bradycardia no longer present Electronically Signed On 09-08-23 13:03:24 CDT by Deo Haywood
== END 2023-09-07 11:27 | disposition home or self-care (01) ==
LOC: ER 07:59
DX: R55 Syncope and collapse (principal); R42 Dizziness and giddiness; R11.0 Nausea
CPT/HCPCS: 85025; 80048; 36415; 83735; 80076; 84484; 70450; 71045; J7030; 93005

== ENCOUNTER 2023-12-10 06:59 | Emergency (ER) | payer OTHER ==
--- OUTSIDE RECORDS SUMMARY | 2023-12-10 07:02 | XMS REPORT | Continuity of Care Document ---
Author Name Unknown Address [address] [facility] [facility] [address] [place] [address] [facility] thconnect Address [address] [place] [address] Care Team Providers Care State Game Protector Name Role Phone Marcus Doyle Attending Clinician Unavailable Greg Hughes Attending Clinician Unav ailable Jessica Attending Clinician Unavail able Greg Hughes Attending Clinician Greg Hughes Admitting Clinician Unav ailable Jessica Admitting Clinician Unavail able Physician, No Primary or Family Admitting Clinic elizabeth Unavailable Payers Payer Name Policy Type Policy Number Effective Date Expirati on Date Source [employer] (MEDICARE REPLACEMENT PPO) [id number] 2017 00:00:00 Problems Condition Name Condition Details [...] Clinician Comments Source hydrocod [place] RASH 07-26 00:00: 00 [facility] hydrocod one [place] 07-26 00:00: 00 [facility] hydrocod one [place] RASH 06-06 00:00: 00 [facility] hydrocod one [place] 06-06 00:00: 00 [facility] hydrocod one [place] RASH 2011-03 00:00: 00 [facility] hydrocod one [place] 2011-03 00:00: 00 [facility] Medications Ordered Medication Name Filled [...] End Date/Time Encounter Type Admission Type Attending [facility] Care Facility Care Department Encounter ID Source 2023-06-26 13:25:01 Outpatient Marcus Doyle [facility] [id number] [facility] 2020-07-26 08:39:51 [id number] 2022-08-06 00:00:00 2022-08-06 00:00:00 Outpatient Tangela Layton [facility] [id number] [facility] 2022-08-02 00:00:00 2022-08-02 00:00:00 Outpatient Tangela Layton AOSM AOSM [id number] [facility] 2022-04-16 00:00:00 2022-04-16 00:00:00 Outpatient Tangela Layton AOSM AOSM [id number] [facility] 2022-04-16 00:00:00 2022-04-16 00:00:00 Outpatient Tangela Layton AOSM AOSM [id number] [facility] 2021-08-23 09:14:00 2021-08-23 09:14:00 Outpatient Tangela Layton AOSM AOSM [id number] [facility] 2021-08-23 00:00:00 2021-08-23 00:00:00 Outpatient Greg Hughes [id number] 2021-08-23 00:00:00 2021-08-23 00:00:00 Greg Hughes MD: [address] [place] [address] , Ph. [phone] [place] [facility] Main Mobile [id number] [facility] 2021-07-27 04:34:00 2021-07-27 04:34:00 Outpatient JAMES_Saul _Lucien_ [facility] [id number] [facility] 2020-08-03 13:30:19 2020-08-03 13:30:19 Outpatient Greg Hughes [facility] [id number] [facility] 2020-07-26 08:40:08 2020-07-26 08:40:08 Outpatient Greg Hughes [facility] [id number] 14 [facility] 2020-06-06 09:29:41 2020-06-06 09:29:41 Outpatient Greg Alfaro [facility] [id number] [facility] Results Test Description Test Time Test Comments Results Resul t Comments Source - XR SHOULDER 2 + V LT 2020-08-11 08:38:00 [facility] 1950 Sex: M Patient Name: ARI KELLEY Unit No: [id number] EXAMS: CPT CODE: [id number] XR SHOULDER 2 + [place] [address]82 AP portable left shoulder COMMENT: The patient is status post reverse prosthesis placement which is articulating normally. at 0838 Reported and signed by: Ignacio Wren MD CC: Greg Hughes MD Technologist: RUBEN MOSQUERA (RT.R) Transcribed D/ (0838) FranciscoL [facility] NAME: ARI KELLEY [address] [facility] PHYS: Greg Mace Chauncey : 1950 AGE: 70 SEX: M [place], [place] [address] LOC: Y.302 A PHONE #: [phone] EXAM DATE: 08/09/2020 STATUS: DIS IN FAX #: [phone] RAD #: D/C DT 08/10/2020 PAGE 1 Signed Report Patient Name: ARI KELLEY Unit No: [id number] EXAMS: CPT CODE: [id number] XR SHOULDER 2 + [place] [address] (Continued) Orig Print D/T: S: 08/11/2020 (0841) [facility] NAME: ARI KELLEY [address] [facility] PHYS: Greg Mace Chauncey : 1950 AGE: 70 SEX: M [place] [address] LOC: Y.302 A PHONE #: [phone] EXAM DATE: 08/09/2020 STATUS: DIS IN FAX #: [phone] RAD #: D/C DT 08/10/2020 PAGE 2 Signed Report CBC W/AUTO [id number] 05:46:00* Test Item Value Reference Range Interpretation [...] N SPECIMEN COMMENT: POD #1Novel Coronavirus 2019 [id number] 06:07:00* Test Item Value Reference Range Interpretation Comme nts Novel Coronavirus 2019 Inhouse (test code = COVNONPUI) Negative Negative Positive resul ts are indicative of the presence bkEWVU-NsY-1 RNA, clinical correlation with patient historyand other [...] SARS-CoV-2 assay in vitro. Novel Coronavirus 2019 [id number] 06:07:00* Test Item Value Reference Range Interpretation Comme nts Novel Coronavirus 2019 Inhouse (test code = COVNONPUI) Negative Negative Positive resul ts are indicative of the presence mfOJPB-QuM-9 RNA, clinical correlation with patient historyand other [...] moleculardiagnostic SARS-CoV-2 assay in vitro. COMPREHENSIVE METABOLIC [id number] 10:51:00* Test Item Value Reference Range Interpretation [...] 58.7 >60 Unit of m easure: mL/min/1.73 w2Jjdchjkoi Range:Healthy Adults >90 mL/min/1.73 m2 For Chronic [...] = ALKP) 96 U/L 46-116 N PROTHROMBIN [id number] 10:37:00* Test Item Value Reference Range Interpretation [...] intravascular valves IS PATIENT ON ANTICOAGULANTS ? [facility] been notified if Patient is on Heparin Drip? NOTHROMBOPLASTIN TIME [id number] 10:37:00* Test Item Value Reference Range Interpretation Comme nts PTT ACTIVATED (test code = APTT) 31.6 secs 24.9-37.0 N IS PATIENT ON ANTICOAGULANTS ? [facility] been notified if Patient is on Heparin Drip? NOCBC W/AUTO [id number] 10:37:00* Test Item Value Reference Range Interpretation [...] % 0-0 N - XR ARTHROGRAM SHLDR [id number] 11:36:00 [facility] 1950 Sex: M Patient Name: ARI KELLEY Unit No: [id number] EXAMS: CPT CODE: [id number] XR ARTHROGRAM SHLDRLT 54998 Fluoroscopically guided left shoulder aspiration followed by [...] Hughes MD Technologist: RT Israel.(R) Transcribed D/ (9954) IvonneGVG [facility] NAME: ARI KELLEY [address] [facility] PHYS: Greg Mace : 1950 AGE: 70 SEX: M [place], [place] [address] LOC: Y.RAD PHONE #: [phone] EXAM DATE: 06/06/2020 STATUS: DEP CLI FAX #: [phone] RAD #: D/C DT PAGE 1 Signed Report Patient Name: ARI KELLEYUnit No: [id number] EXAMS: CPT CODE: [id number] [place] [address] (Continued) Orig PrintD/T: S: 06/19/2020 (1139) [facility] NAME: ARI KELLEY [address] [facility] PHYS: Greg Mace : 1950 AGE: 70 SEX: M [place], [place] [address] LOC: Y.RAD PHONE #: [phone] EXAM DATE: 06/06/2020 STATUS: DEP CLI FAX #: [phone] RAD #: D/C DT PAGE 2 Signed Report- CT UP EXTREM W/CONT LT 2020-06-06 12:38:00 [facility] 1950 Sex: M Patient Name: ARI KELLEY Unit No: [id number] EXAMS: CPT CODE: [id number] CT UP EXTREM W/CONTLT 79846 CT OF THE LEFT SHOULDER POST ARTHROGRAPHY [...] Technologist: RT An(R) CTDI: DLP: Trnscrpt: 06/06/2020 (0917) t.ESAUR.L [facility] NAME: ARI KELLEY [address] PHYS: Greg Mace : 1950 AGE: 70 SEX: M [place], [place] [address] LOC: StephanyRAD PHONE #: [phone] EXAM DATE: 06/06/2020 STATUS: REG CLI FAX #: [phone] RAD #: D/C DT PAGE 1 Signed Report Patient Name: ARI KELLEY Unit No: [id number] EXAMS: CPT CODE: [id number] CT [place] EXTREM W/[place] [address] (Continued) Orig Print D/T: S: 06/06/2020 (1241) [facility] NAME: ARI KELLEY [address] [facility] PHYS: Greg Mace : 1950 AGE: 70 SEX: M [place] [address] LOC: StephanyRAD PHONE #: [phone] EXAM DATE: 06/06/2020 STATUS: REG CLI FAX #: [phone] RAD #: D/C DT PAGE 2 Signed [...] = NRBC) 0 % 0-0 N SED [id number] 11:00:00* Test Item Value Reference Range Interpretation Comme nts SED RATE (test code = SEDW) 3 mm/hr 0-15 N C REACTIVE [id number] 10:19:00* Test Item Value Reference Range Interpretation Comme nts C REACTIVE PROTEIN (test cod e = CRP) < 0.2 mg/dL <0.9 CBC W/AUTO [id number] 09:59:00* Test Item Value Reference Range Interpretation [...] = NRBC) 0 % 0-0 N SED [id number] 09:59:00* Test Item Value Reference Range Interpretation Comme nts SED RATE (test code = SEDW) mm/hr 0-15 Notes Date/Time Note Provider Source 2020-08-10 09:07:00 [facility] Clinical Note REPORT#:[id number] REPORT STATUS: Signed DATE:08/10/20 TIME: 906 PATIENT: ARI KELLEY UNIT #: [id number] ROOM/BED: 302A : 50 AGE: 70 SEX: M ATTEND: Greg Hughes MD ADM AUTHOR: Reyes Gill MD * ALL edits or amendments must be made on the electronic/computer document * Clinical Note Note: [facility] Reyes Patel M.D. (cell text [phone]) Assessment/Plan 1.) Anemia of acute blood loss- .Hgb 13.3, asymptomatic. 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 Anticoagulation as per Dr. Hughes. 3.) Hypertension- .follow BP and hold Rxs if SBP<120. 4.) OsteoArthritis Hyperlipidemia- .continue on Rx. * OK for DISCHARGE per Internal Medicine. Prior Events/Overnight: Uneventful. Chief Complaint: No significant complaints. Objective Vital Signs Date Temp Pulse Resp B/P B/P Mean Pulse Ox FiO2 08/09-08/10 96.8-99.1 55-87 14-19 130-153/65-9 91.1-110.3 94-100 32-100 1 Gen: Alert, oriented, in mild discomfort Neck: No Masses, No Thyromegaly- CV: Regular Rate Rhythm / Edema- no significant Resp: Clear To Ascultation / Normal Respiratory Effort ABD: NonTender / NonDistended MS/Skin: No sign of compartment syndrome / +wriggles LUE digits, wrist / nl capillary refill of LUE digits Other: dressing dry Labs/X-ray: Laboratory Tests: 08/10 0314 Chemistry Sodium (136 - 145 mmol/L) 135 [...] (Auto) (20 - 40 %) 6.2 L [place] % (Auto) (3 - 10 %) 8.3 Eos % (Auto) (1 - 5 %) 0.0 L Baso % (Auto) (0.0 - 1.1 %) 0.2 Neut # (Auto) (2.00 - 7.50 K/mm3) 10.68 H Lymph # (Auto) (1.50 - 4.00 K/mm3) 0.78 L [place] # (Auto) (0.2 - 0.8 K/mm3) 1.05 H Eos # (Auto) (0.04 - 0.4 K/mm3) 0.00 L Baso # (Auto) (0.02 - 0.10 K/mm3) 0.02 Add Manual Diff (MANUAL DIFF) NO Nucleated RBC % (0 - 0 %) 0 Reyes Patel M.D. at 1614 RPT #:[id number] END OF REPORT [facility] 2020-08-10 08:13:00 [facility] Pain Management Progress Note REPORT#:[id number] REPORT STATUS: Signed DATE:08/10/20 TIME: 812 PATIENT: ARI KELLEY UNIT #: [id number] ROOM/BED: [address] : [birth year] AGE: 70 SEX: M ATTEND: Greg Hughes MD ADM AUTHOR: Christina Briceno EXHIBITION CARVER * ALL edits or amendments must be made on the electronic/computer document * Subjective Chief Complaint: L SHOULDER PAIN S/P TSA REVISION Comments: Last Documented: Result Date Time FiO2 100 08/10 0753 O2 Delivery Nasal cannula 08/10 0753 O2 Flow Rate 3 08/10 0753 Pulse Ox 94 08/10 717 B/P 153/89 [...] O DOSE: 0.2 MG DELAY: 8 MIN ALUMINUM POOL INSTALLER USE: FRQUENT Activity status: PT SITTING UP IN BED EATING BREAKFAST. Pain: STATES HAS LITTLE PAIN Physical Exam: VAS: 1-2 LOS: 1 Resp Quality: 1 Side Effects: NONE PT APPEARS COMFORTABLE AT THIS TIME. MOTOR MVMT AND STRENGTH INTACT TO LUE. Plan: BLOCK FOLLOW UP ALUMINUM POOL INSTALLER TO BE DC'D BY FLOOR NURSE THIS AM PT TO TRANSITION TO ORAL PAIN MEDS ANTICIPATE D/C HOME TODAY at 0816 RPT #:[id number] [facility] 2020-08-10 08:13:00 [facility] Pain Management Progress Note REPORT#:[id number] REPORT STATUS: Signed DATE:08/10/20 TIME: 08 PATIENT: ARI KELLEY UNIT #: [id number] ROOM/BED: [address] : [birth year] AGE: 70 SEX: M ATTEND: Greg Hughes MD ADM AUTHOR: Christina Briceno NP * ALL edits or amendments must be made on the electronic/computer document * Subjective Chief Complaint: L SHOULDER PAIN S/P TSA REVISION Comments: Last Documented: Result Date Time FiO2 100 08/10 0753 O2 Delivery Nasal cannula 08/10 0753 O2 Flow Rate 3 08/10 0753 Pulse Ox 94 08/10 0718 B/P 153/89 08/10 0718 B/P Mean 110.3 08/10 0718 Temp 36.1 08/10 0718 Pulse 80 08/10 0718 Resp 18 08/10 0618 History: PMH: HTN, SINUS [place]RA[place] POD: 1 APMS RN: Micheline ABDULLAHI RN MD who placed block: DR. GABRIEL Type of block: IS S/S Time block wore off: 0500 Medication: DILAUDID Pump settings: BASAL RATE: O DOSE: 0.2 MG DELAY: 8 MIN ALUMINUM POOL INSTALLER USE: FRQUENT Activity status: PT SITTING UP IN BED EATING BREAKFAST. Pain: STATES HAS LITTLE PAIN Physical Exam: VAS: 1-2 LOS: 1 Resp Quality: 1 Side Effects: NONE PT APPEARS COMFORTABLE AT THIS TIME. MOTOR MVMT AND STRENGTH INTACT TO LUE. Plan: BLOCK FOLLOW UP ALUMINUM POOL INSTALLER TO BE DC'D BY FLOOR NURSE THIS AM PT TO TRANSITION TO ORAL PAIN MEDS ANTICIPATE D/C HOME TODAY at 0816 at 0638 RPT #:[id number] END OF REPORT [facility] 2020-08-10 06:35:00 [facility] Discharge Summary REPORT#:[id number] REPORT STATUS: Signed DATE:08/10/20 TIME: 634 PATIENT: ARI KELLEY UNIT #: [id number] [facility] AGE: 70 SEX: M ATTEND: Greg Hughes MD ADM AUTHOR: WALLACE ESPAÑA MD * ALL edits or amendments must be made on the electronic/computer document * General Information Discharge date: 08/10/20 Hospital course: Discharge Diagnosis: Left shoulder failed TSA Discharge: Home Pt Condition: Stable Activity: Ambulate with Assistance Diet as tolerated Sig Findings: uneventful course Treatment Rendered: Left shoulder HWR and RSA implant Prescriptions: On chart Special Instructions: provided to patient Follow- up appointment: 2 Week(s) Brief Hospital Course The patient underwent the above procedure on their admission date without complication. Postoperatively they were transferred to the orthopedic patient care unit. They received 24hrs postoperative antibiotics. They were transitioned from IV to oral pain medications with good control at discharge. They were placed in a sling and worked on elbow/wrist ROM and ADLs with PT. Once patient met all criteria they were deemed appropriate for discharge. They had no other complications during the visit. Med Rec Med Rec Discharge meds: Continue taking these medications: Multivitamins W-Minerals (Multivitamins) 1 TAB TABLET 1 TABLET [...] NEEDED. as needed for PAIN Discharge Instructions PCP )( Discharge to: Home/Self Care Discharge Instructions Additional Discharge Routines: None at 0636 RPT #:[id number] END OF REPORT [facility] 2020-08-10 06:32:00 [facility] Orthopaedic Progress Note REPORT#:[id number] REPORT STATUS: Signed DATE:08/10/20 TIME: 06 PATIENT: ARI KELLEY UNIT #: [id number] ROOM/BED: [address] : [birth year] AGE: 70 SEX: M ATTEND: Greg Hughes MD ADM AUTHOR: WALLACE ESPAÑA MD * ALL edits or amendments must be made on the electronic/computer document * Diagnosis, Assessment Plan Free text A P: Subjective: Patient is alert, oriented, and resting comfortably. Tolerating PO intake well. Pain is tolerable. Denies CP or SOB. Denies Numbness, tingling or weakness. Objective: L Shoulder- dressing is clean, dry, and intact. Arm in sling. Sensation intact to Axillary, radial, median, ulnar nerves Able to fire deltoid Intact motor function in radial, median, ulnar nerves Radial pulse palpable Laboratory Tests 08/10/20 0314: [Embedded Image Not Available] Vital Signs: Date Time Temp Pulse Resp B/P B/P Pulse O2 O2 Flow FiO2 Mean Ox Delivery Rate 08/10 0339 95 Nasal 3 32 cannula 08/10 0305 37.3 75 16 138/77 97.4 97 08/09 2303 37.0 80 16 130/72 91.1 94 / 2135 94 Nasal 3 32 cannula 08/10 2027 37.3 87 16 131/75 93.2 96 Room [...] 59 15 147/72 100 Simple 6 mask 08/09 1153 36.5 71 16 149/72 97 Simple 6 mask / 0927 52 18 105/63 100 Simple 6 mask / 0912 56 17 104/59 100 Simple 6 mask 05/ 0857 60 16 117/65 100 Simple 6 mask 05/ 0842 59 16 111/62 100 Simple 6 mask / 0743 36.1 61 18 147/78 96 Room air Assessment/ Plan: Left shoulder revision arthroplasty TSA to RSA - Post op day #1 May discharge home when ready from orthopedic standpoint - Follow up in office with physician in 2 week(s). Prescription for pain control called in to pharmacy at 0633 RPT #:[id number] END OF REPORT [facility] 2020-08-09 21:44:00 [facility] Clinical Note REPORT#:[id number] REPORT STATUS: Signed DATE:08/09/20 TIME: 2143 PATIENT: ARI KELLEY UNIT #: [id number] ROOM/BED: Y302-A : 50 AGE: 70 SEX: M ATTEND: Greg Hughes MD ADM AUTHOR: Reyes Gill MD * ALL edits or amendments must be made on the electronic/computer document * Clinical Note Note: [facility] Reyes Patel MD (cell text [phone]) Internal Medicine Consult at request of : Dr. [...] see below. PmHx: . Hypertension, Hypercholesterolemia ALLERGY: Allergies: hydrocodone (Coded, Mild, RASH, 07/26/20) Home Medications: Home Medications: amLODIPine (NORVASC) 5 MG PO DAILY METOPROLOL TARTRATE [...] 16 years FHx: .No significant hx of DVT/PE. Alcohol: 1 glass of wine daily Drugs: none Lives: with spouse Vitals: Vital Signs Date Temp Pulse Resp B/P B/P Mean Pulse Ox FiO2 08/09 96.8-99.1 52-87 14-19 104-149/59-91 93.2-109.6 94-100 32 Gen: Alert, in mild discomfort, nl nutrition. EYE: Nl lids conjunctiva. ENT: Nl ears Nose, nl lips,. Neck: Supple, nl thyroid, No masses. CV: Regular Rate Rhythm, no heave or significant murmur. Edema- none RESP: Clear to Auscultation, normal Respiratory effort. ABD: Soft, NonDistended,. LYM: No significant cervical Lymphadenopathy. MS: No sign of compartment syndrome, arm in sling, dressing dry and intact NEURO: Some numbness of LUE, +wriggles LUE digits, wrist . Preop Labs (07/26/2020): CBC:. Hgb 15.3, Plt 180, CHEM: Na 139, K 4.3, Cr 1.22 (eGFR 58.7%), EKG: Sinus bradycardia at 51 bpm (medium to high risk of complications or morbidity) (major surgery) (IV sedative, meds) Assessment Plan 1.) Anemia of Acute Blood Loss- .will recheck tomorrow. 2.) S/p Revision to LEft RSA- .acute multi-modal pain control and followup. Anticoagulation as per Dr. Hughes. 3.) Hypertension- .follow BP and hold Rxs if SBP<120. 4.) OsteoArthritis Hyperlipidemia- .continue on Rx. Reyes Patel M.D. Thanks! G8427 - current medications obtained and reviewed. G8730 - pain assessment with tool and followup plan 1126F - offered discussion on advanced care plan and patient declined to address issue at this time. at 0650 RPT #:[id number] END OF REPORT [facility] 2020-08-09 12:05:00 [facility] Brief Op Note REPORT#:[id number] REPORT STATUS: Signed DATE:08/09/20 TIME: 1205 PATIENT: ARI KELLEY UNIT #: [id number] ROOM/BED: : 50 AGE: 70 SEX: M ATTEND: Greg Hughes MD ADM AUTHOR: WALLACE ESPAÑA MD * ALL edits or amendments must be made on the electronic/computer document * Op/Inv Proc Note - Brief Pre-procedure diagnosis: left shoulder failed TSA Post-procedure diagnosis: same as pre procedure dx Procedures performed: Left shoulder revision to RSA Primary Surgeon: Saul Professor Of Pathology(s): Taco Johnson Findings: See dictation Complications: none Estimated blood loss in ml's: 200ccs Specimens removed/altered: none Drain(s): Medium Hemovac at 1206 [facility] #:[id number] [facility] 2020-08-09 11:42:00 [id number] [place] [address] PATIENT NAME: ARI KELLEY ADMIT DATE: 08/09/20 ACCOUNT NO: [id number] [facility] 70 REPORT TYPE: OPERATIVE REPORT SEX: M ADMITTING PHYSICIAN: ATTENDING PHYSICIAN:Greg Hughes MD OPERATION DATE: 08/09/2020 PREOPERATIVE DIAGNOSIS: Left shoulder failed total shoulder arthroplasty. POSTOPERATIVE DIAGNOSES: Left shoulder failed total shoulder arthroplasty with subscapularis tendon disruption and left shoulder subdeltoid contracture. PROCEDURES PERFORMED: 1. Left shoulder examination under anesthesia. 2. Left shoulder complex revision total shoulder arthroplasty using reverse prosthesis. 3. Left shoulder open subdeltoid contracture release. SURGEON: Greg Hughes MD ASSISTANTS: Greg Johnson MD and Wallace España MD ANESTHESIA: General. COMPLICATIONS: None. ESTIMATED BLOOD LOSS: 200 mL INDICATIONS FOR PROCEDURE: Mr. Kelley is a 70-year-old male, who 10 years prior underwent a total shoulder arthroplasty done by me. The patient did well for many years, but unfortunately developed progressive glenoid loosening. Risks and benefits of revision total shoulder arthroplasty reverse prosthesis were discussed with him and he desired to proceed with surgery. The reverse prosthesis is a much more complex device than conventional shoulder arthroplasty requiring more time for insertion as well as more diligent followup to observe for the higher complication rate that can occur in the postoperative global period. For these reasons, I feel the use of a 22 modifier is indicated when coding for this procedure. PROCEDURE IN DETAIL: The patient was taken to the operating room and placed on the operating room table in supine position, where general anesthesia was administered. The patient was then positioned in modified beach chair position. Examination under anesthesia did not reveal any pathological laxity or stiffness of glenohumeral joint. Next, the left upper extremity and shoulder girdle region were prepped and PATIENT NAME: ARI KELLEY draped in usual sterile fashion. Prior deltopectoral approach was then reopened using #10 blade scalpel. Bovie was used in deep dissection obtaining hemostasis. Deltopectoral interval was identified. There was a subdeltoid contracture present and this was released to permit mobilization of the humerus. Axillary nerve was identified and protected throughout the case. Subscapularis tendon and biceps were absent. The supraspinatus, infraspinatus, and teres minor were intact. There was clear joint fluid present with no evidence of infection. Glenoid was grossly loose and removed. Proximal humerus was then dislocated. The humeral stem was disimpacted out of the proximal humerus. Proximal humerus was retracted posteriorly. Next, all the soft tissue was removed out of the glenoid, which demonstrated a contained defect. Next, the glenoid was prepared for the [employer] Perform Plus glenoid and a 29+6 lateralized baseplate with a 9.5 x 35 screw was selected and inserted. Allograft chips and bone putty were placed behind the glenoid component prior to inserting all the way. Next, the baseplate was further fixed with a 38 locking screw inferiorly, a 38 locking screw superiorly, 34 compression screw posteriorly, and 30 compression screw anteriorly. This gave excellent fixation. A 36+3 lateralized glenoid was then placed and the whole construct was stable. Proximal humerus was then redislocated. Proximal humerus was then prepared using the [employer] AltiVate reverse and a size 12 diameter standard length regular shell was inserted in 30 degrees of humeral retroversion. Trials were made with various size spacers and polyethylene and ultimately a +8 mm spacer with a 36+4 constrained polyethylene was inserted. This gave excellent soft tissue tension and appropriate range of motion and stability. Wound was irrigated thoroughly. A medium Hemovac drain was placed. Deep tissue was reapproximated with 0 Vicryl in an interrupted fashion. Subcutaneous tissue was reapproximated with 2-0 Vicryl in an interrupted fashion. Skin was reapproximated with skin chica. Sterile dressing and sling were applied. The patient tolerated the procedure well, was transferred to the recovery room in satisfactory condition. The skilled assistance of Greg Johnson MD was necessary during this complex surgical procedure. He assisted with every aspect of the operation including, but not limited to, proper and safe positioning of the patient, obtaining adequate surgical exposure, manipulation of surgical instruments, suture management, surgical knot tying, the continual process of hemostasis during the procedure itself in addition to surgical wound closure and removal of the patient from the operating table and returning the patient back to the [facility]. His assistance allowed me to perform the most sensitive and technical potions of this operation using 2 hands, thus enhancing efficiency and patient safety. This would not be possible without the help of a skilled drilling assistant familiar with the procedure and capable of safely performing the aforementioned tasks. Dictated By: Greg Hughes MD WT: OP:Y.HIM/EDWTH/NTS Conf#: [id number]/DID#: [id number] Authenticated by Greg Hughes MD On 08/10/2020 06:45:16 AM PATIENT NAME: ARI KELLEY at 0645 PATIENT NAME: ARI KELLEY [facility] 2020-07-26 10:04:00 [id number] [place] [address] PATIENT NAME: ARI KELLEY ADMIT DATE: ACCOUNT NO: [id number] ROOM NO: AGE: 70 REPORT TYPE: ELECTROCARDIOGRAM SEX: M ADMITTING PHYSICIAN:Greg Hughes MD ATTENDING PHYSICIAN:Greg Hughes MD Order: [id number] Test Reason : PRE SURGERY CLEARANCE Test Date/Time Stamp: FriJul 26 2020 10:04:23 Blood Pressure : / mmHG Vent. Rate : 051 BPM Atrial Rate : 051 BPM P-R Int : 184 ms QRS Dur : 114 ms QT Int : 440 ms P-R-T Axes : 069 085 083 degrees QTc Int : 405 ms Sinus bradycardia Otherwise normal ECG No previous ECGs available Confirmed by SUDHEER MUNIZ MD ([id number]) on 07/28/2020 8:17:09 PM Referred By: Greg Hughes Confirmed by:SUDHEER MUNIZ MD at 2017 PATIENT NAME: ARI KELLEY [facility]
[2023-12-10] MEDS ORDERED: IPRATROPIUM BROM 0.5MG/2.5ML ONE (07:31)
[2023-12-10] MEDS ORDERED: ALBUTEROL 2.5 MG/3 ML NEB SOL ONE (07:31)
[2023-12-10 07:45] LABS: Absolute Basophils 0.1 K/uL (0-0.5); Absolute Eosinophils 0.1 K/uL (0-0.5); Absolute Lymphocytes (CBC) 1.1 K/uL (0.7-4.9); Absolute Monocytes 0.6 K/uL (0.1-1.3); Absolute Neutrophil 5.3 K/uL (1.8-8.0); Basophils % 0.9 % (0-1.3); Eosinophils % 1.6 % (0-4.4); Hemoglobin 14.7 g/dL (13.6-17.9); Lymphocytes % 15.6 % (15.3-44.8); MCH 30.9 pg (27.0-35.0); MCHC 34.1 g/dL (32.0-36.0); MCV 90.6 fL (80-100); MPV 6.9 fL (7.6-11.3); Monocytes % 7.7 % (3.3-12.3); Neutrophils % 74.2 % (41.7-73.7); Platelets 311 thou/uL (152-406); RBC Red Blood Cell Count 4.75 M/uL (4.33-5.43); Red Cell Distribution Width 13.2 % (12.1-15.2)
[2023-12-10 08:05] LABS: Albumin 3.3 g/dL (3.4-5.0); Albumin/Globulin Ratio 0.8 (1.1-1.8); Bilirubin Total 0.4 mg/dL (0.2-1.0); Magnesium 2.6 mg/dL (1.6-2.4); Protein, Total 7.3 g/dL (6.4-8.2)
--- NOTE | 2023-12-10 08:31 | RAD REPORT ---
Procedure: Chest Single View History: Chest pain Comparison: August 2023 Lungs are moderately hyperaerated. The lungs appear clear of acute infiltrate. No significant pleural effusion noted. The heart is normal size. IMPRESSION: No acute abnormality is displayed.
--- NOTE | 2023-12-10 09:01 | ER ---
Nurse's Notes [facility] Name: Allan Kelley Age: 73 yrs Sex: Male : 1950 Arrival Date: 12/10/2023 Time: 06:59 Bed 5 Private MD: Diagnosis: Cough;Chest tightness;Recent diagnosis of COVID Presentation: 12/09 07:19 Chief complaint: Patient states: SOB AND COUGH SINCE COVID 3 WK AGO. Coronavirus bp screen: At this time, the client does not indicate any symptoms associated with coronavirus-19. Ebola Screen: No symptoms or risks identified at this time. Initial Sepsis Screen: Does the patient meet any 2 criteria? No. Patient's initial sepsis screen is negative. Does the patient have a suspected source of infection? No. Patient's initial sepsis screen is negative. Risk Assessment: Do you want to hurt yourself or someone else? Patient reports no desire to harm self or others. Onset of symptoms is unknown. 07:19 Method Of Arrival: Ambulatory bp 07:19 Acuity: BENITEZ 3 bp Triage Assessment: 07:21 General: Appears in no apparent distress. Behavior is calm, cooperative, appropriate bp for age. Pain: Denies pain. EENT: No deficits noted. Respiratory: Reports shortness of breath cough that is Onset: The symptoms/episode began/occurred gradually, the patient has mild shortness of breath. Historical: - Allergies: 07:21 No Known Allergies; bp - PMHx: 07:21 Hyperlipidemia; Hypertensive disorder; bp - PSHx: 07:21 Left shoulder repair; bp - Immunization history:: Adult Immunizations up to date. - Infectious Disease History:: Denies. - Social history:: Smoking status: Patient denies any tobacco usage or history of. Screenin:23 [facility] ED Fall Risk Assessment (Adult) History of falling in the last 3 months, bp including since admission No falls in past 3 months (0 pts) Confusion or Disorientation No (0 pts) Intoxicated or Sedated No (0 pts) Impaired Gait No (0 pts) Mobility Assist Device Used No (0 pt) Altered Elimination No (0 pt) Score/Fall Risk Level 0 - 2 = Low Risk Oriented to surroundings. Abuse screen: Denies threats or abuse. Denies injuries from another. Nutritional screening: No deficits noted. Tuberculosis screening: No symptoms or risk factors identified. Assessment: 07:44 General: Appears in no apparent distress. comfortable, well groomed, Behavior is calm, ph cooperative, appropriate for age, Denies fever. Pain: Complains of pain in chest Pain does not radiate. Quality of pain is described as sharp, Aggravated by cough, deep breathing. Neuro: Level of Consciousness is awake, alert, obeys commands, Oriented to person, place, time, situation. Cardiovascular: Reports shortness of breath, Rhythm is sinus bradycardia. Respiratory: Reports shortness of breath at rest on exertion cough that is Airway is patent Respiratory effort is even, unlabored, Respiratory pattern is regular, symmetrical. GI: No signs and/or symptoms were reported involving the gastrointestinal system. Derm: Skin is pink, warm \T\ dry. Musculoskeletal: Circulation, motion, and sensation intact. Range of motion: intact in all extremities. 08:35 Reassessment: Patient appears in no apparent distress at this time. Patient and/or ph family updated on plan of care and expected duration. Pain level reassessed. Patient is alert, oriented x 3, equal unlabored respirations, skin warm/dry/pink. Vital Signs: 07:19 BP 172 / 88; Pulse 63; Resp 16; Temp 98.1; Pulse Ox 95% ; Weight 79.38 kg; Height 5 ft. bp 9 in. ; 08:34 BP 121 / 79; Pulse 57; Resp 20; Pulse Ox 94% on R/A; ph 07:19 Body Mass Index 25.84 (79.38 kg, 175.26 cm) bp ED Course: 07:01 Patient arrived in ED. jj6 07:13 Melanie Mueller MD is Attending Physician. sd2 07:21 Triage completed. bp 07:21 Arm band placed on. bp 07:23 Patient has correct armband on for positive identification. bp 07:35 Initial lab(s) drawn, by me, sent to lab. EKG done, by ED staff, reviewed by Perry SANCHES ph D. Inserted saline lock: 20 gauge in right forearm, using aseptic technique. Blood collected. Flushed with 10 mL NS. 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 Pulse ox on. NIBP on. Door closed. Noise minimized. Lights dimmed. kc6 Warm blanket given. Pillow given. 07:36 Patient maintains SpO2 saturation greater than 95% on room air. kc6 07:37 Initial Neb Treatment Given as ordered Patient was instructed and evaluated on kc6 procedure Patient tolerated procedure well without adverse effect. 07:44 Margret Bunn, RN is Primary Nurse. ph 07:46 Troponin High Sensitivity Sent. ph 07:46 Magnesium Sent. ph 07:46 CMP Sent. ph 07:54 XRAY Chest (1 view) In Process Unspecified. EDMS 08:35 PO fluids given. ph 09:00 Tiffanie Doyle MD is Referral Physician. sd2 09:33 No provider procedures requiring assistance completed. IV discontinued, intact, kc6 bleeding controlled, No redness/swelling at site. Pressure dressing applied. Administered Medications: 07:36 Drug: DuoNeb Nebulize (3:1) (2.5 mg - 0.5 mg) 3 ml Nebulizer once Route: Nebulizer; kc6 08:17 Follow up: Response: No adverse reaction kc6 Medication: 07:44 VIS not applicable for this client. ph Outcome: 09:01 Discharge ordered by . sd2 09:33 Discharged to home ambulatory, with significant other, kc6 09:33 Condition: good 09:33 Discharge instructions given to patient, Instructed on discharge instructions, follow up and referral plans. medication usage, Demonstrated understanding of instructions, follow-up care, medications, Prescriptions given X 2, 09:33 Patient left the ED. kc6 Signatures: Dispatcher [employer] Margret Ramirez, RN Salazar Espinoza ph, RN RN bp Jeffries, Jennifer jj6 Dunlop, Stephanie, MD MD sd2 Feli Arteaga RN RN kc
--- NOTE | 2023-12-10 09:01 | EDPHYS ---
Physician Documentation [facility] Name: Allan Kelley Age: 73 yrs Sex: Male : 1950 Arrival Date: 12/10/2023 Time: 06:59 Bed 5 Private MD: ED Physician Melanie Mueller HPI: 12/09 07:33 This 73 yrs old Male presents to ER via Ambulatory with complaints of Shortness Of sd2 Breath, Cough, Chest Tightness. 07:33 73 yo M presents with CC of cough and chest tightness. Reports having COVID 3 weeks ago sd2 which has since improved and he has tested negative but remains with persistent now dry cough and chest tightness with occasional SOB which makes it difficult for him to sleep. Reports he was on paxlovid and stopped taking his HTN and HLD medications due to it. Has been monitoring his BP at home and reports it has been well controlled. Denies fever, vomiting, diarrhea or other symptoms. Reports CP only with coughing. . Historical: - Allergies: 07:21 No Known Allergies; bp - PMHx: 07:21 Hyperlipidemia; Hypertensive disorder; bp - PSHx: 07:21 Left shoulder repair; bp - Immunization history:: Adult Immunizations up to date. - Infectious Disease History:: Denies. - Social history:: Smoking status: Patient denies any tobacco usage or history of. ROS: 07:33 Constitutional: Negative for fever, chills, and weight loss, Eyes: Negative for injury, sd2 pain, redness, and discharge, 07:33 Abdomen/GI: Negative for abdominal pain, nausea, vomiting, diarrhea. Back: Negative for injury and pain, MS/Extremity: Negative for injury and deformity, Skin: Negative for injury, rash, and discoloration, Neuro: Negative for headache, numbness and tingling. 07:33 Cardiovascular: Positive for chest pain, Negative for edema, palpitations, 07:33 Respiratory: Positive for cough, shortness of breath, wheezing, Negative for hemoptysis, Exam: 07:33 Constitutional: This is a well developed, well nourished patient who is awake, alert, sd2 and in no acute distress. Head/Face: Normocephalic, atraumatic. Eyes: EOMI, normal conjunctiva bilaterally Chest/axilla: Normal chest wall appearance and motion. Nontender with no deformity. Cardiovascular: Regular rate and rhythm with a normal S1 and S2. No gallops, murmurs, or rubs. 2+ distal pulses. Respiratory: Lungs with expiratory wheezing noted to LLL, very slight, otherwise clear, no respiratory distress or increased WOB Abdomen/GI: Soft, non-tender, with normal bowel sounds. No guarding or rebound. No evidence of tenderness throughout. Skin: Warm, dry with normal turgor. Normal color with no rashes, no lesions, and no evidence of cellulitis. MS/ Extremity: Pulses equal, no cyanosis. Neurovascular intact. Full, normal range of motion. Psych: Awake, alert, with orientation to person, place and time. Behavior, mood, and affect are within normal limits. 07:51 ECG was reviewed by the Attending Physician. Sinus bradycardia, rate 57, no STEMI sd2 criteria Vital Signs: 07:19 BP 172 / 88; Pulse 63; Resp 16; Temp 98.1; Pulse Ox 95% ; Weight 79.38 kg; Height 5 ft. bp 9 in. ; 08:34 BP 121 / 79; Pulse 57; Resp 20; Pulse Ox 94% on R/A; ph 07:19 Body Mass Index 25.84 (79.38 kg, 175.26 cm) bp MDM: 07:13 Patient medically screened. sd2 07:33 Differential diagnosis: ACS, COPD, bronchitis, CHF, long COVID, dehydration, sd2 electrolyte abnormality, MSK among others. Data reviewed: vital signs, nurses notes, lab test result(s), EKG, radiologic studies. I considered the following discharge prescriptions or medication management in the emergency department Medications were administered in the Emergency Department. See MAR. Historians other than the Patient: Spouse/Significant Other: at BS. Care significantly affected by the following chronic conditions: Hypertension. 08:58 Counseling: I had a detailed discussion with the patient and/or guardian regarding the sd2 historical points, exam findings, and any diagnostic results supporting the discharge/admit diagnosis, lab results, radiology results, the need for outpatient follow up, to return to the emergency department if symptoms worsen or persist or if there are any questions or concerns that arise at home. Response to treatment: the patient's symptoms have markedly improved after treatment. ED course: Pt feeling improved after nebulizer treatment. BP improved. VSS. O2 doing well on room air. Likely lingering cough from COVID. With wheezing, will send home with albuterol inhaler and burst steroids. Pt comfortable with plan for discharge and has scheduled outpatient follow up appointment with Dr. Doyle.. 12/09 07:29 Order name: CBC with Diff; Complete Time: 08:09 sd2 12/09 07:29 Order name: CMP; Complete Time: 08:09 12/09 07:29 Order name: Magnesium; Complete Time: 08:09 12/09 07:29 Order name: Troponin High Sensitivity; Complete Time: 08:09 sd12/09 07:29 Order name: BNP; Complete Time: 08:09 12/09 07:29 Order name: XRAY Chest (1 view); Complete Time: 08:37 sd2 12/09 07:29 Order name: EKG - Nurse/Tech; Complete Time: 07:36 sd2 Administered Medications: 07:36 Drug: DuoNeb Nebulize (3:1) (2.5 mg - 0.5 mg) 3 ml Nebulizer once Route: Nebulizer; kc6 08:17 Follow up: Response: No adverse reaction kc6 Disposition Summary: 12/10/23 09:01 Discharge Ordered Problem: an ongoing problem sd2 Symptoms: have improved sd2 Condition: Stable sd2 Diagnosis - Cough sd2 - Chest tightness sd2 - Recent diagnosis of COVID sd2 Followup: sd2 - With: Tiffanie Doyle MD - When: 1 week - Reason: Recheck today's complaints, Continuance of care, Re-evaluation by your physician Discharge Instructions: - Discharge Summary Sheet sd2 - How to Use a Metered Dose Inhaler sd2 - Cough, Adult sd2 Forms: - Medication Reconciliation Form sd2 - Antibiotic Education sd2 - Prescription Opioid Use sd2 - Patient Portal Instructions sd2 - Leadership Thank You Letter sd2 Prescriptions: - albuterol sulfate 90 mcg/actuation Inhalation HFA Aerosol Inhaler - inhale 2 puff INHALATION route every 4-6 hours As needed as needed for cough sd2 and shortness of breath; 1 unit; Refills: 0, Product Selection Permitted - Prednisone 20 mg Oral Tablet - take 2 tablets ORAL route once daily for 5 days; 10 tablet; Refills: 0, Product sd2 Selection Permitted Signatures: Dispatcher Med[employer] Goodman, RN RN bp Melanie Mueller MD MD sd2 Feli Arteaga, SUZAN RN kc6
[2023-12-10 09:47] VITALS: TEMP 98.1
[2023-12-10 09:53] VITALS: BP 121/79; O2SAT 94
--- NOTE | 2023-12-11 12:12 | EKG ---
Test Date: 2023-12-10 Test Time: 07:33:43 Salt Operator: PH MEASUREMENT RESULTS: Intervals: Rate: 57 MN: 192 QRSD: 98 QT: 436 QTc: 424 [place]: P: 69 MN: 192 QRS: 81 T: 85 INTERPRETIVE STATEMENTS: Sinus bradycardia Septal infarct, age undetermined Abnormal ECG Compared to ECG 09/07/2023 08:09:30 Myocardial infarct finding now present Sinus rhythm no longer present Electronically Signed On 12-11-23 12:09:25 CDT by Dami Gamez
== END 2023-12-10 09:33 | disposition home or self-care (01) ==
LOC: ER 06:59
DX: R05.9 Cough, unspecified (principal); R07.89 Other chest pain; Z86.16 Personal history of COVID-19; I10 Essential (primary) hypertension
CPT/HCPCS: 85025; 36415; 83735; 84484; 80053; 83880; 71045; J7613; J7644; 93005; 94640; 99285